=== PATIENT | female | born 1935 | race Caucasian/White ===

== ENCOUNTER 2017-07-06 16:59 | Inpatient (IN) | payer MEDICARE ==
[2017-07-06] MEDS ORDERED: NS 0.9% 1000 ML*IV.FLUID IV ONE (17:54)
[2017-07-06] MEDS ORDERED: Vancomycin(*) 1,000 MG in NS 0.9% 250 ML* 250 ML IVPB ONE (17:55)
[2017-07-06] MEDS ORDERED: Piperacillin/Tazobac ADVAN(*) 3.375 GM in NS 0.9% 100 ML* 100 ML IVPB ONE (18:28)
[2017-07-06] MEDS ORDERED: Piperacillin/Tazobac (*) 3.375 GM BAG ONE (18:32)
[2017-07-06 18:49] LABS: Hematocrit 21 % (35-47); Hemoglobin 6.5 g/dl (12.0-16.0); Mean Corpuscular HGB Conc 32 g/dl (31-36); Mean Corpuscular Hemoglobin 28 pg (27-31); Mean Corpuscular Volume 89 fL (80-97); Mean Platelet Volume 6.9 um3 (7.4-10.4); Platelet Count 445 10^3/ul (150-450); Red Blood Count 2.34 10^6/ul (4.0-5.4); Red Cell Distribution Width 18 % (10.5-15); White Blood Count 29.9 10^3/ul (3.5-10.8)
[2017-07-06 19:07] LABS: EGFR Non-African American 31.9 (>60)
[2017-07-06 19:10] LABS: ABS Basophils 0.1 10^3/ul (0-0.2); ABS Eosinophils 0 10^3/ul (0-0.6); ABS Lymphocytes 0.4 10^3/ul (1.0-4.8); ABS Monocytes 2.1 10^3/ul (0-0.8); ABS Neutrophils 27.2 10^3/ul (1.5-7.7); ABS Nucleated RBC 0 10^3/ul; Eosinophil % 0.1 % (0-6); Lymphocyte % 1.3 % (25-47); Nucleated Red Blood Cells % 0.1
--- NOTE | 2017-07-06 19:18 | RAD ---
INDICATION: Sepsis COMPARISON: Chest x-ray dated October 03, 2015 TECHNIQUE: Single AP view of the chest was obtained. FINDINGS: There is mild cardiomegaly. There is density obscuring the right lung base and causing a small degree of right costophrenic angle blunting. Visualized bones are normal for the patient's age. IMPRESSION: POTENTIAL CONSOLIDATION AND/OR PLEURAL EFFUSION AT THE RIGHT LUNG BASE.
[2017-07-06 20:20] LABS: Urine Appearance Cloudy; Urine Blood 2+ (Negative); Urine Color Yellow; Urine Ketones Negative (Negative); Urine Protein 1+(30 mg/dL) (Negative); Urine Specific Gravity 1.012 (1.010-1.030); Urine Urobilinogen Negative (Negative)
--- NOTE | 2017-07-06 21:07 | ED ---
Kim Stephenson Emily, scribed for Tai Bray MD on 07/06/17 at 1805 . Abdominal Pain/Female - HPI Summary HPI Summary: This patient is an 82 year old F BIBA and referred to [facility] by PCP accompanied by family with a chief complaint of waxing and waning abd pain that began 1 week ago. The patient rates the pain 0/10 in severity. Symptoms aggravated by nothing. Symptoms alleviated by nothing. Patient reports back stool, black urine , weakness, and sore on the buttock. Pt had bloodwork done this morning for these symptoms, and reports that her PCP told her she had a low glucose. - History of Current Complaint Chief Complaint: EDGeneral Stated Complaint: ABNORMAL BLOOD WORK Time Seen by Provider: 07/06/17 17:41 Hx Obtained From: Patient ?: No Onset/Duration: Sudden Onset, Lasting Weeks, Still Present Timing: Constant Severity Initially: Mild Severity Currently: Mild Pain Intensity: 0 Pain Scale Used: 0-10 Numeric Location: Diffuse Radiates: No Aggravating Factor(s): Nothing Alleviating Factor(s): Nothing Associated Signs and Symptoms: Positive: Other: - Positive back stool, black urine, weakness, and sore on the buttock Allergies/Adverse Reactions: Allergies Allergy/AdvReac Type Severity Reaction Status Date / Time MS Codeine [Codeine] Allergy Unknown Verified 06/06/17 13:11 Reaction Details MS Oxymorphone [Oxymorphone] AdvReac Unknown Verified 06/06/17 13:11 Reaction Details MS Tramadol [From Ultram] AdvReac Unknown Verified 06/06/17 13:11 Reaction Details bee stings Allergy Severe anaphylaxis Uncoded 10/18/15 13:21 coffee Allergy Unknown Unknown Uncoded 10/18/15 13:21 Reaction Details PMH/Surg Hx/FS Hx/Imm Hx Previously Healthy: No Endocrine/Hematology History: Reports: Hx Anemia, Other Endocrine/Hematological Disorders - pancreatic insufficiency Denies: Hx Anticoagulant Therapy, Hx Diabetes, Hx Thyroid Disease Cardiovascular History: Reports: Hx Angina, Hx Deep Vein Thrombosis, Hx Hypotension, Hx Syncope, Other Cardiovascular Problems/Disorders - thrombolphlebitis, 1989 and orthostatic hypotension Denies: Hx Congestive Heart Failure, Hx Hypertension, Hx Pacemaker/ICD Respiratory History: Reports: Hx Pulmonary Embolism Denies: Hx Asthma, Hx Chronic Obstructive Pulmonary Disease (COPD) GI History: Reports: Hx Gall Bladder Disease - ursula'y; pancreatic insufficiency , Hx Gastroesophageal Reflux Disease, Hx Ulcer, Other GI Disorders - pancreatic insufficiency, pancreatic sx Denies: Hx Jaundice History: Reports: Other Problems/Disorders - neurogenic bladder Denies: Hx Renal Disease Musculoskeletal History: Reports: Hx Arthritis, Hx Rheumatoid Arthritis, Hx Back Problems, Hx Orthopedic Injury, Other Musculoskeletal History - rotator cuff repair Sensory History: Reports: Hx Cataracts, Hx Contacts or Glasses Denies: Hx Eye Injury, Hx Eye Prosthesis, Hx Glaucoma, Hx Legally Blind, Hx Macular Degeneration, Hx Vision Problem, Hx Deafness, Hx Hearing Aid, Hx Hearing Problem, Other Sensory Impairments Opthamlomology History: Reports: Hx Cataracts, Hx Contacts or Glasses Denies: Hx Eye Injury, Hx Eye Prosthesis, Hx Glaucoma, Hx Legally Blind, Hx Macular Degeneration, Hx Vision Problem, Other Sensory Impairments Neurological History: Reports: Hx Seizures, Hx Spinal Cord Injury, Other Neuro Impairments/Disorders - neurogenic bladder, FENTANYL PUMP Denies: Hx Dementia, Hx Developmental Delay, Hx Headaches, Hx Migraine, Hx Nerve Disease, Hx Transient Ischemic Attacks (TIA) Psychiatric History: Denies: Hx Anxiety, Hx Depression, Hx Substance Abuse - Surgical History Surgery Procedure, Year, and Place: intrathecal pump. revision of the intrathecal pump. pancreatic surgery. cataract lens implants. spinal surgery , [id number]. gastric bypass. cholecystectomy. appendectomy Hx Anesthesia Reactions: No - Immunization History Date of Tetanus Vaccine: 2009 Infectious Disease History: No Infectious Disease History: Reports: Hx of Known/Suspected MRSA Denies: Hx Clostridium Difficile, Hx Hepatitis, Hx Human Immunodeficiency Virus (HIV), Hx Shingles, Hx Tuberculosis, Hx Known/Suspected VRE, Hx Known/ Suspected VRSA, History Other Infectious Disease, Traveled Outside the [place] in Last 30 Days - Family History Known Family History: Positive: Other - Cancer - Social History Occupation: Retired Lives: Alone Alcohol Use: None Hx Substance Use: No Substance Use Type: Reports: None Substance Use Comment - Amount & Last Used: hydromorphone Hx Tobacco Use: Yes Smoking Status (MU): Former Smoker Type: Cigarettes Have You Smoked in the Last Year: No Review of Systems Positive: Other - Positive black stool Positive: other - Positive black urine Positive: Other - Positive sore on buttock Positive: Weakness All Other Systems Reviewed And Are Negative: Yes Physical Exam - Summary Physical Exam Summary: Appearance: The patient is well-nourished and ill-appearing. Skin: The skin is warm and dry and skin color reflects adequate perfusion. Mild erythema on bilateral buttocks. Mild tenderness. HEENT: The head is normocephalic and atraumatic. The pupils are equal and reactive. The conjunctivae are clear and without drainage. Nares are patent and without drainage. Mouth reveals moist mucous membranes and the throat is without erythema and exudate. The external ears are intact. The ear canals are patent and without drainage. The tympanic membranes are intact. Neck: the neck is supple with full range of motion and non-tender. There are no carotid bruits. There is no neck vein distension. Respiratory: Chest is non-tender. Lungs are clear to auscultation and breath sounds are symmetrical and equal. Cardiovascular: Heart is regular rate and rhythm. There is no murmur or rub auscultated. There is no peripheral edema and pulses are symmetrical and equal. Abdomen: The abdomen is soft. Mild diffuse tenderness. There are normal bowel sounds heard in all four quadrants and there is no organomegaly palpated. Musculoskeletal: There is no back tenderness noted. Extremities are non-tender with full range of motion. There is good capillary refill. There is no peripheral edema or calf tenderness elicited. Neurological: Patient is alert and oriented to person, place and time. The patient has symmetrical motor strength in all four extremities. Cranial nerves are grossly intact. Deep tendon reflexes are symmetrical and equal in all four extremities. Psychiatric: The patient has an appropriate affect and does not exhibit any anxiety or depression. Triage Information Reviewed: Yes Vital Signs On Initial Exam: Initial Vitals Temp Pulse Resp BP Pulse Ox 98.8 F 97 14 101/49 95 07/06/17 17:36 07/06/17 17:36 07/06/17 17:36 07/06/17 17:36 07/06/17 17:36 Vital Signs Reviewed: Yes Diagnostics - Vital Signs Vital Signs Temp Pulse Resp BP Pulse Ox 07/06/17 17:36 98.8 F 97 14 101/49 95 - Laboratory Lab Results: Lab Results 07/06/17 07/06/17 07/06/17 Range/Units 18:45 18:45 18:45 WBC 29.9 H (3.5-10.8) 10^3/ul RBC 2.34 L (4.0-5.4) 10^6/ul Hgb 6.5 L (12.0-16.0) g/dl Hct 21 L (35-47) % MCV 89 (80-97) fL MCH 28 (27-31) pg MCHC 32 (31-36) g/dl RDW 18 H (10.5-15) % Plt Count 445 (150-450) 10^3/ul MPV 6.9 L (7.4-10.4) um3 Neut % (Auto) 91.0 H (38-83) % Lymph % (Auto) 1.3 L (25-47) % Latimer % (Auto) 7.2 H (0-7) % Eos % (Auto) 0.1 (0-6) % Baso % (Auto) 0.4 (0-2) % Absolute Neuts (auto) 27.2 H (1.5-7.7) 10^3/ul Absolute Lymphs (auto) 0.4 L (1.0-4.8) 10^3/ul Absolute Monos (auto) 2.1 H (0-0.8) 10^3/ul Absolute Eos (auto) 0 (0-0.6) 10^3/ul Absolute Basos (auto) 0.1 (0-0.2) 10^3/ul Absolute Nucleated RBC 0 10^3/ul Nucleated RBC % 0.1 INR (Anticoag Therapy) 1.00 (0.77-1.02) APTT 27.2 (26.0-36.3) seconds Sodium 142 (139-145) mmol/L Potassium 3.9 (3.5-5.0) mmol/L Chloride 109 (101-111) mmol/L Carbon Dioxide 23 (22-32) mmol/L Anion Gap 10 (2-11) mmol/L BUN 48 H (6-24) mg/dL Creatinine 1.56 H (0.51-0.95) mg/dL Est GFR ( Amer) 41.0 (>60) Est GFR (Non-Af Amer) 31.9 (>60) BUN/Creatinine Ratio 30.8 H (8-20) Glucose 103 H (70-100) mg/dL Lactic Acid (0.5-2.0) mmol/L Calcium 7.6 L (8.6-10.3) mg/dL Total Bilirubin 0.30 (0.2-1.0) mg/dL AST 13 (13-39) U/L ALT 8 (7-52) U/L Alkaline Phosphatase 100 (34-104) U/L Troponin I 0.42 H* (<0.04) ng/mL C-Reactive Protein 250.79 H (< 5.00) mg/L Total Protein 5.8 L (6.4-8.9) g/dL Albumin 2.1 L (3.2-5.2) g/dL Globulin 3.7 (2-4) g/dL Albumin/Globulin Ratio 0.6 L (1-3) Urine Color Urine Appearance Urine pH (5-9) Ur Specific Spencer (1.010-1.030) Urine Protein (Negative) Urine Ketones (Negative) Urine Blood (Negative) Urine Nitrate (Negative) Urine Bilirubin (Negative) Urine Urobilinogen (Negative) Ur Leukocyte Esterase (Negative) Urine WBC (Auto) (Absent) Urine RBC (Auto) (Absent) Ur Squamous Epith Cells (Absent) Urine Bacteria (Absent) Urine Glucose (Negative) 07/06/17 07/06/17 Range/Units 18:45 20:03 WBC (3.5-10.8) 10^3/ul RBC (4.0-5.4) 10^6/ul Hgb (12.0-16.0) g/dl Hct (35-47) % MCV (80-97) fL MCH (27-31) pg MCHC (31-36) g/dl RDW (10.5-15) % Plt Count (150-450) 10^3/ul MPV (7.4-10.4) um3 Neut % (Auto) (38-83) % Lymph % (Auto) (25-47) % Latimer % (Auto) (0-7) % Eos % (Auto) (0-6) % Baso % (Auto) (0-2) % Absolute Neuts (auto) (1.5-7.7) 10^3/ul Absolute Lymphs (auto) (1.0-4.8) 10^3/ul Absolute Monos (auto) (0-0.8) 10^3/ul Absolute Eos (auto) (0-0.6) 10^3/ul Absolute Basos (auto) (0-0.2) 10^3/ul Absolute Nucleated RBC 10^3/ul Nucleated RBC % INR (Anticoag Therapy) (0.77-1.02) APTT (26.0-36.3) seconds Sodium (139-145) mmol/L Potassium (3.5-5.0) mmol/L Chloride (101-111) mmol/L Carbon Dioxide (22-32) mmol/L Anion Gap (2-11) mmol/L BUN (6-24) mg/dL Creatinine (0.51-0.95) mg/dL Est GFR ( Amer) (>60) Est GFR (Non-Af Amer) (>60) BUN/Creatinine Ratio (8-20) Glucose (70-100) mg/dL Lactic Acid 1.0 (0.5-2.0) mmol/L Calcium (8.6-10.3) mg/dL Total Bilirubin (0.2-1.0) mg/dL AST (13-39) U/L ALT (7-52) U/L Alkaline Phosphatase (34-104) U/L Troponin I (<0.04) ng/mL C-Reactive Protein (< 5.00) mg/L Total Protein (6.4-8.9) g/dL Albumin (3.2-5.2) g/dL Globulin (2-4) g/dL Albumin/Globulin Ratio (1-3) Urine Color Yellow Urine Appearance Cloudy Urine pH 5.0 (5-9) Ur Specific Spencer 1.012 (1.010-1.030) Urine Protein 1+(30 mg/dl) A (Negative) Urine Ketones Negative (Negative) Urine Blood 2+ A (Negative) Urine Nitrate Negative (Negative) Urine Bilirubin Negative (Negative) Urine Urobilinogen Negative (Negative) Ur Leukocyte Esterase 2+ A (Negative) Urine WBC (Auto) 3+(>20/hpf) A (Absent) Urine RBC (Auto) 3+(>10/hpf) A (Absent) Ur Squamous Epith Cells Present A (Absent) Urine Bacteria 1+ A (Absent) Urine Glucose Negative (Negative) Result Diagrams: 07/06/17 18:45 07/06/17 18:45 Lab Statement: Any lab studies that have been ordered have been reviewed, and results considered in the medical decision making process. - Radiology CXR Radiology Interpretation Completed By: Radiologist - CXR reveals, per radiologist, potential consolidation and/or pleural effusion at the right lung base. ED physician has reviewed this radiology report. - EKG 2032 Cardiac Rate: NL EKG Rhythm: Sinus Rhythm - [address] Segment: Normal Ectopy: None Abdominal Pain Fem Course/Dx - Course Course Of Treatment: Ms. Del Rio has been having abdominal pain on and off for several days and had blood work done this morning at Dr. kenyatta schreiber. She was found to have a marked leukocytosis and a worsening anemia and was advised to come to the emergency department. Here she was ill appearing but awake and alert with normal vital signs. She complained of abdominal pain but was not very tender to exam. She also complained of pain from her buttock area but again her exam was not very remarkable. White count was almost 30,000 with a leftward shift. Her CRP was over 200. Her hemoglobin was 6.9 and she had mild renal insufficiency. She was given 30 cc/kg IV fluid and Zosyn was ordered because of the concern of abdominal pain and pain out of proportion to exam. Her urine did return looking very. She is being admitted to the hospitalist service. - Diagnoses Provider Diagnoses: Sepsis, UTI (urinary tract infection) - Provider Notifications Discussed Care Of Patient With: Emir Garsia Time Discussed With Above Provider: 19:45 Instructed by Provider To: Other - Consult with Dr. Garsia (hospitalist) at 1945. He agrees to admit the pt for further evaluation. - Critical Care Time Critical Care Time: 30-74 min Discharge - Sign-Out/Discharge Documenting (check all that apply): Discharge/Admit/Transfer - Admit to [facility] - Discharge Plan Condition: Stable Disposition: ADMITTED TO [facility] Referrals: Bruce Fernandez MD [Primary Care Provider] - - Billing Disposition and Condition Condition: STABLE Disposition: HOSP-[facility] The documentation as recorded by the Kim ledesma Emily accurately reflects the service I personally performed and the decisions made by me, Tai Bray MD.
[2017-07-06] MEDS ORDERED: Pantoprazole IV* 40 MG IV ONE (22:12)
[2017-07-06] MEDS ORDERED: NS 0.9% 1000 ML* 1,000 ML IV SCH (22:15)
[2017-07-06] MEDS ORDERED: Polyethylene Glycol 3350* 17 GM PACKET PO PRN (22:18)
[2017-07-06] MEDS ORDERED: Prochlorperazine SUPP* 25 MG SUPP PR PRN (22:18)
[2017-07-06] MEDS ORDERED: HYDROmorphone TAB* 2 MG PO PRN (22:18)
[2017-07-06] MEDS ORDERED: SUMAtriptan TAB* 50 MG PO PRN (22:18)
[2017-07-06] MEDS ORDERED: Zosyn per Pharmacy* NOTE FOLLOW UP SCH (23:00)
[2017-07-07] MEDS: ZOSYN 3.375 GM Q12H per EXTENDED INFUSION IVPB SCH ×4 (01:10→11:51)
[2017-07-07] MEDS ORDERED: HYDROmorphone INJ* 2 MG/ML CARPUJECT SYRINGE IV SLOW PU ONE (05:53)
[2017-07-07] MEDS: Pantoprazole IV* 80 MG in NS 0.9% 250 ML* 250 ML IV SCH ×3 (06:19→21:19)
--- NOTE | 2017-07-07 07:08 | HP ---
CC: Dr. Fernandez * ADMISSION HISTORY AND PHYSICAL: DATE OF ADMISSION: 07/06/17 PRIMARY CARE PROVIDER: Dr. Fernandez. HEALTHCARE PROXY: Her nieces, Camryn Owusu and Opal Hernandez. CODE STATUS: Full. SOURCE OF INFORMATION: History obtained from interview with patient and review of past medical records. RELIABILITY: The patient's reliability is fair to poor. Medical record is excellent. CHIEF COMPLAINT: Abnormal labs and abdominal pain. HISTORY OF PRESENT ILLNESS: This is an 82-year-old female who has been in her usual state of health until around , approximately 5 to 6 days prior to presentation, started to notice black stool that was not tarry in nature. She had it for several days and the stool color started to normalize, but then returned to black again. Also, over she started to experience abdominal pain that had 2 different qualities. One pain she describes as like having a chain under her breast that was pulling and other that was cramping like she needed to move her bowels, also described the spasms. Both had improved and then returned again. She cannot say how long either pain lasts before resolving. She cannot indicate any exacerbating or relieving symptoms. She notes that on Sunday she had vomiting that occurred all day innumerable amount of times that started to improve on Sunday. She notes no blood in her emesis. She indicates that her predominant symptom in addition to the abdominal pain was essential weakness, though so profound that she had trouble thinking. She denies any headache, fevers or chills, but indicated she felt confused as if she knew she needed to do things and sign papers, but did not know exactly what to do. She indicates she has a neurogenic bladder and self- cath's 3 times a day. She does freely urinate, although does have urinary incontinence. She denies any dysuria, urinary frequency or hesitancy or malodorous urine. She notes no diarrhea, no cough, has denied night fevers or chills, although she indicates she has been feeling increasingly cold. She has been staying in a wheelchair all week and not walking secondary to her weakness and fear of falling. PAST MEDICAL HISTORY: Includes: 1. Chronic pain with intrathecal pump. 2. History of subdural hematoma. 3. Neurogenic bladder, self-cath 3 times a day. 4. Pancreatic insufficiency. 5. Severe orthostatic hypotension. 6. History of DVT and PE. 7. History of left hip fracture. 8. History of migraines. 9. Urolithiasis. 10. History of aortic stenosis, although last transthoracic echocardiogram here does not indicate any severity. 11. History of malabsorption syndrome. 12. L2 vertebral fracture. 13. GERD. 14. Renal insufficiency. 15. History of cellulitis. PAST SURGICAL HISTORY: 1. History of appendectomy. 2. Lap cholecystectomy. 3. Mainor-en-Y surgery. 4. Cataract extraction. MEDICATIONS: Medications per patient's medication list: 1. Chlorhexidine oral rinse. 2. Creon 5 one tab 4 times a day with food. 3. Fludrocortisone 0.1 mg in the morning. 4. Midodrine 2.5 mg 3 times a day. 5. Dilantin sod extended 100 mg twice daily. 7. Potassium chloride 20 mg 2 in the morning and 2 at night. 8. Tums 1000 mg daily as needed. 9. Tonic water 16 ounces for leg cramps. 10. Spironolactone 25 mg in the morning. 11. Vitamin B12 1 mL injected twice monthly. 12. Vitamin K 1 mL injected weekly. 13. Bumetanide 1 mg daily. 14. Metolazone 2.5 mg as needed for edema. 15. EpiPen as needed. 16. Nitroglycerin 0.4 mg as needed. 17. Sumatriptan 50 mg at the onset of headaches. 18. Compazine 25 mg suppository every 4 to 6 hours for nausea. 19. Oxybutynin 5 mg. ALLERGIES: CODEINE, OXYMORPHONE, TRAMADOL, BEE STINGS and COFFEE. FAMILY HISTORY: Mother had cancer, father with CAD. SOCIAL HISTORY: No history of tobacco. No alcohol. Lives by herself. REVIEW OF SYSTEMS: As per above, otherwise all other systems negative. PHYSICAL EXAMINATION GENERAL: Elderly woman lying on her side, interactive, no apparent distress. VITAL SIGN: In the emergency room: 103/45, heart rate 91, respiratory rate is 18, 98% on room air. T. max 98.8. HEENT: Oropharynx is clear. She has dry mucous membranes. Sclerae are anicteric. LUNGS: Clear to auscultation. NECK: She has elevated JVD to the angle of her jaw. HEART: She has a 3/6 systolic ejection murmur. Regular rate and rhythm. ABDOMEN: Soft. There is a subcutaneous pump placed without tenderness. Her abdomen has positive bowel sounds. It is tender in the suprapubic region. EXTREMITIES: Warm and well perfused without clubbing or cyanosis. Less than 2 second cap refill NEUROLOGIC: She is alert and oriented x3. Her cranial nerves II through XII are intact. DIAGNOSTIC STUDIES/LAB DATA: Pertinent laboratory data: Troponin I 0.42, creatinine 1.56. White blood cell count 29.9, neutrophils 91%, platelets 445, hemoglobin is 6.5, hematocrit 21. INR is 1.0. Urine is positive for protein, blood, leuk esterase, white blood cells, squamous epithelial cells and bacteria. CRP is 250. Data reviewed: Chest x-ray, impression: Potential consolidation and/or pleural effusion at the right lung base. EKG impression: Normal sinus rhythm, ventricular rate of 87, left axis. Normal R- wave progression. No ST or T-wave changes. ASSESSMENT AND PLAN: This is an 82-year-old female presenting to the hospital with about a week of abdominal pain found with elevated C-reactive protein, anemia and troponin on labs. 1. Leukocytosis: Suspect in the setting of infection with elevated C-reactive protein as well. There is potential consolidation based on the chest x-ray, although I favor the urine as the source of infection. The patient has received Zosyn once in the emergency room. We will continue until blood cultures or urine cultures results positive or negative. Volume resuscitation with blood for anemia as indicated further below. The patient is certainly high risk for urinary tract infections with frequent straight cath. 2. Abdominal pain. Certainly is possible in the setting of urinary tract infection, although I feel it is important to get CT abdomen and pelvis. We will check image with oral contrast, but not IV given chronic kidney disease. In the setting of anemia and black tarry stool, gastric ulcer is certainly something to entertain. We will bolus Protonix and start her on a drip. GI consultation in addition. Blood as indicated above and below for anemia. 3. Anemia. Suspect acute blood loss from a gastrointestinal source given melena. Bolus Protonix as indicated above, then Protonix drip. GI consult, CT abdomen and pelvis 1 unit of blood ordered. 4. Acute on chronic kidney injury in the setting of infection and/or blood loss. Fluid resuscitate with blood as indicated above. 5. Elevated troponin. Suspect demand although cannot rule out acute ischemic event as etiology of her weakness and abdominal pain. Repeat troponin is downtrending at this time. I have ordered transthoracic echocardiogram. The patient has a history of aortic stenosis although and it sounds severe based on exam although severity is not commented on the most recent study that I have access to. Repeat transthoracic echocardiogram while hospitalized if able. 6. Chronic congestive heart failure, diastolic. Holding diuretics in the setting of acute blood loss anemia. 7. Chronic pain. Continuing home medications. 8. Hypertension. Holding home antihypertensives in the setting of acute blood loss anemia. 9. DVT prophylaxis: SCDs in the setting of suspected gastrointestinal bleed. [id number]/[facility] #: [id number]
[2017-07-07 08:56] LABS: ABS Basophils 0.1 10^3/ul (0-0.2); ABS Eosinophils 0.1 10^3/ul (0-0.6); ABS Lymphocytes 0.3 10^3/ul (1.0-4.8); ABS Monocytes 2.2 10^3/ul (0-0.8); ABS Neutrophils 28.1 10^3/ul (1.5-7.7); ABS Nucleated RBC 0 10^3/ul; Eosinophil % 0.3 % (0-6); Hematocrit 24 % (35-47); Hemoglobin 7.5 g/dl (12.0-16.0); Lymphocyte % 0.9 % (25-47); Mean Corpuscular HGB Conc 31 g/dl (31-36); Mean Corpuscular Hemoglobin 27 pg (27-31); Mean Corpuscular Volume 86 fL (80-97); Mean Platelet Volume 7.4 um3 (7.4-10.4); Nucleated Red Blood Cells % 0.1; Platelet Count 374 10^3/ul (150-450); Red Cell Distribution Width 21 % (10.5-15); White Blood Count 30.8 10^3/ul (3.5-10.8)
[2017-07-07] MEDS ORDERED: Midodrine (NF) 5 MG TAB PO SCH (09:00)
[2017-07-07 09:14] LABS: EGFR Non-African American 33.6 (>60)
--- NOTE | 2017-07-07 09:38 | RAD ---
INDICATION: Abdominal pain. Sepsis. Sore on buttocks. Previous pancreatic surgery. Mainor-en-Y bypass. COMPARISON: February 12, [address] and September 30, [address] TECHNIQUE: Multidetector CT images were obtained from the lung bases to the ischial tuberosities. Oral contrast history. Assessment of the visceral limited without IV contrast. REPORT: Images through the inferior thorax are remarkable for elevated lung volumes with increased AP thoracic diameter, mild bilateral dependent atelectasis, potential mild interstitial edema, and small bilateral dependent pleural effusions. Negative for cardiomegaly or pericardial effusion. Small hiatal hernia. Post cholecystectomy. Pneumobilia and resolution of previous biliary dilatation favoring interval sphincterotomy; correlate with surgical history. Atrophic pancreas without suspicious focal abnormality. Unremarkable spleen. Postsurgical change of Mainor-en-Y gastric bypass. Enteric contrast extends to the hepatic flexure of the colon. No suspicious abnormality of the small bowel loops. The appendix is not visualized. No compelling CT abnormality of the colon. Negative for ascites, free air, hernias. Normal adrenal glands. Advanced atrophy of the kidneys. Small exophytic cyst inferior pole LEFT kidney. Negative for obstructive uropathy. No abnormality along the course of the nondilated ureters. Unremarkable partially distended urinary bladder. No CT abnormality of the uterus. Unchanged finding of small bilateral ovarian cysts compared with the 2015 exam without concern. Negative for lymphadenopathy. Normal diameter abdominal aorta and iliac arteries with significant calcific plaque. Partial physiologic distention of the IVC. Diffuse subcutaneous edema. Chronic dystrophic calcification within the subcutaneous fat plane of the LEFT buttock. No soft tissue plane abscess collection or subcutaneous emphysema evident. Gamma nail internal fixation with long IM neha at the LEFT hip. Bone density appears decreased throughout. L3 anterior and middle column compression fracture is chronic. Moderate L2 anterior and middle column osteoporotic compression fracture is new compared with the [address] evidence for acute fracture. Compression fractures and multilevel degenerative spondylosis and advanced facet joint osteoarthritis results in multilevel moderate acquired central canal and foraminal stenosis increased over the 2016 exam. Multiple dorsal column stimulator leads noted. IMPRESSION: 1. Images through the inferior thorax are remarkable for elevated lung volumes with increased AP thoracic diameter, mild bilateral dependent atelectasis, potential mild interstitial edema, and small bilateral dependent pleural effusions. 2. Post cholecystectomy. Pneumobilia and resolution of previous biliary dilatation favoring interval sphincterotomy; correlate with surgical history. 3. Postsurgical change of Mainor-en-Y gastric bypass. No acute abnormality of the alimentary tract evident. 4. Peripheral vascular disease without aneurysm of the abdominal aorta. 5. Diffuse subcutaneous edema. No soft tissue plane abscess collection or subcutaneous emphysema evident. 6. Bone density appears decreased throughout. L3 anterior and middle column compression fracture is chronic. Moderate L2 anterior and middle column osteoporotic compression fracture is new compared with the [address] evidence for acute fracture. Compression fractures and multilevel degenerative spondylosis and advanced facet joint osteoarthritis results in multilevel moderate acquired central canal and foraminal stenosis increased over the 2016 exam.
[2017-07-07] MEDS: Calcium Carbonate CHEW TAB* 500 MG (TUMS) PO SCH ×2 (09:39→22:06)
[2017-07-07] MEDS: Potassium Chlor TAB* 20 MEQ TAB.ER PO SCH ×2 (09:40→22:09)
[2017-07-07] MEDS: Fludrocortisone Acetate TAB* 0.1 MG PO SCH (09:40)
[2017-07-07] MEDS: Oxybutynin TAB* 5 MG PO SCH (09:40)
[2017-07-07] MEDS: Spironolactone TAB* 25 MG PO SCH (09:40)
[2017-07-07] MEDS: Phenytoin CAP(*) 100 MG CAP.ER PO SCH ×2 (09:40→22:06)
--- NOTE | 2017-07-07 11:29 | PN ---
Subjective - Subjective History: I reviewed her presentation from Dr. Emir Garisa's admitting history and physical. She presents with a complex of problems. She has had melena stool and is anemic. She was transfused last night. She has increased weakness and a high CRP, WBC and neut% - the source of this infection is unclear. It could be her urinary tract as she self-catheterizes her neurogenic bladder. She has no cough, sputum or dyspnea. She has generalized pain - nothing new. She is weak and subjectively is not mentally as acute as normal - though she is fully oriented and can give a good account of herself. She has pain in her coccyx. 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 Urinary tract infection (Acute) Bariatric surgery status (Chronic) Z98.84 Chronic pain syndrome (Chronic) G89.4 Compression fracture of L3 lumbar vertebra (Chronic) S32.030A Esophageal reflux disease (Chronic 03/30/14) K21.9 L2 vertebral fracture (Chronic) S32.029A Malabsorption (Chronic) Neurogenic bladder (Chronic) N31.9 Osteoporosis (Chronic) M81.0 Pancreatic insufficiency (Chronic) K86.8 Weakness (Chronic 03/30/14) R53.1 Current Medications: Current Medications Calcium Carbonate (Tums*) 1,000 mg PO BID [facility] Last Admin: 07/07/17 09:39 Dose: 1,000 mg Fludrocortisone Acetate (Florinef Tab*) 0.1 mg PO QAM [facility] Last Admin: 07/07/17 09:40 Dose: 0.1 mg Gabapentin (Neurontin Cap(*)) 300 mg PO BEDTIME [facility] Hydromorphone HCl (Dilaudid Tab*) 6 mg PO Q4H PRN PRN Reason: PAIN Pantoprazole Sodium 80 mg/ (Sodium Chloride) 250 mls @ 25 mls/hr IV Q10H [facility] Last Admin: 07/07/17 06:19 Dose: 25 mls/hr Piperacillin Sod/Tazobactam (Sod 3.375 gm/ Sodium Chloride) 100 mls @ 25 mls/ hr IVPB Q12H [facility] Last Admin: 07/07/17 01:10 Dose: 25 mls/hr Midodrine (Midodrine (Nf)) 2.5 mg PO TID [facility] PRN Reason: Protocol Oxybutynin Chloride (Ditropan Tab*) 5 mg PO DAILY [facility] Last Admin: 07/07/17 09:40 Dose: 5 mg Pharmacy Consult (Zosyn Per Pharmacy*) 1 note FOLLOW UP .ZOSYN PER PHARMACY [facility] Phenytoin Sodium (Dilantin Cap(*)) 100 mg PO BID [facility] Last Admin: 07/07/17 09:40 Dose: 100 mg Polyethylene Glycol/Electrolytes (Miralax*) 17 gm PO DAILY PRN PRN Reason: CONSTIPATION Potassium Chloride (Klor Con Er Tab*) 40 meq PO BID [facility] Last Admin: 07/07/17 09:40 Dose: 40 meq Prochlorperazine (Compazine Supp*) 25 mg MD Q4H PRN PRN Reason: VOMITING Sodium Chloride (Hypertonic) (Niko 128 Opth 2% Alejandro*) 1 drop BOTH EYES TID [facility] Sodium Chloride (Hypertonic) (Niko 128- 5% Opth Oint*) 1 applic BOTH EYES BEDTIME [facility] Spironolactone (Aldactone Tab*) 25 mg PO QAM [facility] Last Admin: 07/07/17 09:40 Dose: 25 mg Sumatriptan Succinate (Imitrex Tab*) 50 mg PO DAILY PRN PRN Reason: MIGRAINE HEADACHE - Review of Systems Pulmonary: Negative: Cough, Sputum, Respiratory Distress Cardiology: Positive: Chest Pain - intermittent Negative: Shortness of Breath, Palpitations, Swelling of Ankles Gastroenterology: Negative: Abdominal Pain, Nausea, Vomiting Neurology: Positive: Headache Home Medications: Home Medications Medication Instructions Recorded Confirmed Type Bumetanide TAB* [Bumex 1 MG TAB*] 1 mg PO DAILY 07/06/17 07/06/17 History Calcium Carbonate CHEW TAB* [Tums*] 1,000 mg PO BID 07/06/17 07/06/17 History Chlorhexidine MOUTHWASH 0.12%* 15 ml SWISH SPIT DAILY 07/06/17 07/06/17 History [Peridex Mouth Wash 0.12%*] Cyanocobalamin INJ * [Vitamin B12 1,000 mcg IM .TWICE A MONTH 07/06/17 07/06/17 History INJ *] EPINEPHrine SYR* [EPINEPHphrine 0.1 mg IM ONCE PRN 07/06/17 07/06/17 History SYR*] Fludrocortisone Acetate TAB* 0.1 mg PO QAM 07/06/17 07/06/17 History [Florinef TAB*] Gabapentin CAP(*) [Neurontin 300 300 mg PO BEDTIME 07/06/17 07/06/17 History CAP(*)] HYDROmorphone TAB* [Dilaudid TAB*] 6 - 8 mg PO Q4H PRN MDD 4.5 tablets 07/06/17 07/06/17 History Metolazone TAB* [Zaroxolyn TAB*] 2.5 mg PO DAILY PRN 07/06/17 07/06/17 History Midodrine (NF) 2.5 mg PO TID 07/06/17 07/06/17 History Nitroglycerin TAB 0.4 MG* 0.4 mg SL Q5M PRN 07/06/17 07/06/17 History Oxybutynin TAB* [Ditropan TAB*] 5 mg PO DAILY 07/06/17 07/06/17 History Phenytoin CAP(*) [Dilantin CAP(*)] 100 mg PO BID 07/06/17 07/06/17 History Phytonadione INJ (Adult)* [Vitamin 1 ml IM WEEKLY 07/06/17 07/06/17 History K1 INJ (Adult)*] Polyethylene Glycol 3350* 17 gm PO DAILY PRN 07/06/17 07/06/17 History [Miralax*] Potassium Chlor TAB* [Klor Con ER 40 meq PO BID 07/06/17 07/06/17 History TAB*] Prochlorperazine SUPP* [Compazine 25 mg MD Q4H PRN 07/06/17 07/06/17 History Supp*] SUMAtriptan TAB* [Imitrex TAB*] 50 mg PO DAILY PRN 07/06/17 07/06/17 History Sodium Chloride 2% OPTH.ALEJANDRO* [Niko 1 drop BOTH EYES TID 07/06/17 07/06/17 History 128 Opth 2% Alejandro*] Sodium Chloride 5% OPTH OINT* 1 applic BOTH EYES BEDTIME 07/06/17 07/06/17 History [Niko 128- 5% Opth Oint*] Spironolactone TAB* [Aldactone 25 mg PO QAM 07/06/17 07/06/17 History TAB*] Allergies: Allergies Allergy/AdvReac Type Severity Reaction Status Date / Time codeine AdvReac Unknown Unknown Verified 07/07/17 07:31 Reaction Details oxymorphone AdvReac Unknown Unknown Verified 07/07/17 07:31 Reaction Details tramadol AdvReac Unknown Unknown Verified 07/07/17 07:31 Reaction Details bee stings Allergy Severe anaphylaxis Uncoded 10/18/15 13:21 coffee Allergy Unknown Unknown Uncoded 10/18/15 13:21 Reaction Details Objective - Vital Signs Vital Signs: Vital Signs 07/06/17 07/06/17 07/06/17 23:00 23:46 23:47 Temperature 97.9 F Pulse Rate 84 63 Respiratory 3 16 16 Rate Blood Pressure 149/82 (mmHg) O2 Sat by Pulse 94 99 Oximetry 07/07/17 07/07/17 07/07/17 00:33 02:16 03:34 Temperature 98.3 F 97.9 F Pulse Rate 83 82 86 Respiratory 18 Rate Blood Pressure 95/43 90/38 113/39 (mmHg) O2 Sat by Pulse 97 98 97 Oximetry 07/07/17 07/07/17 07/07/17 04:06 05:32 05:35 Temperature 98.0 F Pulse Rate 79 89 89 Respiratory 16 Rate Blood Pressure 88/34 114/46 104/52 (mmHg) O2 Sat by Pulse 98 Oximetry 07/07/17 07/07/17 07/07/17 06:13 07:00 07:37 Temperature 97.8 F Pulse Rate 89 Respiratory 16 16 16 Rate Blood Pressure 108/44 (mmHg) O2 Sat by Pulse 95 Oximetry 07/07/17 07/07/17 07/07/17 07:56 08:00 08:15 Temperature 98.1 F Pulse Rate 92 84 Respiratory 16 20 Rate Blood Pressure 109/43 (mmHg) O2 Sat by Pulse 89 95 Oximetry - Intake and Output Intake and Output: Intake & Output 07/04/17 07/05/17 07/06/17 07/07/17 11:59 11:59 11:59 11:59 Intake Total 1782 Output Total 200 Balance 1582 Weight 110 lb Intake: IV Fluids 1374 NS (0.9%) 274 IVPB 110 ABX - ZOSYN 110 Oral 0 Packed Cells 298 Output: Urine 200 Other: Estimated Void Medium # Bowel Movements 0 # Voids 1 ADLs: Meal Record Start: 07/06/17 23: 47 Freq: DAILY@0900,1400,1800 Status: Active Protocol: Created 07/06/17 23:47 System (Rec: 07/06/17 23:47 System [email or web address]) Document 07/07/17 09:00 [id number] (Rec: 07/07/17 10:29 [id number]) Intake and Output Start: 07/06/17 23: 47 Freq: DAILY@0600,1400,2200 Status: Active Protocol: Created 07/06/17 23:47 System (Rec: 07/06/17 23:47 System [email or web address]) Document 07/07/17 06:00 [id number] (Rec: 07/07/17 06:15 [id number] [email or web address]) Document 07/07/17 07:22 [id number] (Rec: 07/07/17 07:23 [id number]) - Physical Exam General Physical Exam Comment: She is weak. She has cervical kyphosis. Sacral area - red patch of skin - no ulceration. Frail General: No Cyanosis, Yes Anemia, No Jaundice, No Clubbing Eye Exam: bilateral: EOMI Lungs and Chest: Yes: Chest Expansion Full, Chest Expansion Symetrica, Percussion Note Resonant, Vessicular Breath Sounds. No: Crackles, Wheezes Heart Rate and Rhythm: Regular Additional Cardiovascular: Yes: Normal Heart Sounds. No: Heart Murmur, Pedal Edema Abdominal Exam: Yes: Bowel Sounds Present. No: Distention, Abdominal Mass, Abdominal Tenderness - Extremities Cranial Nerves II-XII Intact: Yes Limbs: Abnormal Power - generalized weakness - Neuro Orientation: A/O x3 Speech: Normal Results - Results Lab Results: Laboratory Results - last 24 hr 07/07/17 07/07/17 08:27 08:27 WBC 30.8 H RBC 2.80 L Hgb 7.5 L Hct 24 L MCV 86 MCH 27 MCHC 31 RDW 21 H Plt Count 374 MPV 7.4 Neut % (Auto) 91.1 H Lymph % (Auto) 0.9 L Crook % (Auto) 7.2 H Eos % (Auto) 0.3 Baso % (Auto) 0.5 Absolute Neuts (auto) 28.1 H Absolute Lymphs (auto) 0.3 L Absolute Monos (auto) 2.2 H Absolute Eos (auto) 0.1 Absolute Basos (auto) 0.1 Absolute Nucleated RBC 0 Nucleated RBC % 0.1 Sodium 141 Potassium 4.3 Chloride 115 H Carbon Dioxide 17 L Anion Gap 9 BUN 45 H Creatinine 1.49 H Est GFR ( Amer) 43.2 Est GFR (Non-Af Amer) 33.6 BUN/Creatinine Ratio 30.2 H Glucose 91 Calcium 7.2 L Radiology Results: Patient Name: YING SINGH Medical Record#: [id number] Ordering Physician: Emir Garsia MD Acct.#: [id number] : 1935 Age: 82 Sex: F Location: [address] [place] [address]/[employer]LE[employer] Exam Date: 07/06/172210 ADM Status: ADM IN Order Information: CT ABD/PEL W/O Accession Number: [id number] CPT: 41741 INDICATION: Abdominal pain. Sepsis. Sore on buttocks. Previous pancreatic surgery. Mainor-en-Y bypass. COMPARISON: February 12, [address] and September 30, [address] TECHNIQUE: Multidetector CT images were obtained from the lung bases to the ischial tuberosities. Oral contrast history. Assessment of the visceral limited without IV contrast. REPORT: Images through the inferior thorax are remarkable for elevated lung volumes with increased AP thoracic diameter, mild bilateral dependent atelectasis, potential mild interstitial edema, and small bilateral dependent pleural effusions. Negative for cardiomegaly or pericardial effusion. Small hiatal hernia. Post cholecystectomy. Pneumobilia and resolution of previous biliary dilatation favoring interval sphincterotomy; correlate with surgical history. Atrophic pancreas without suspicious focal abnormality. Unremarkable spleen. Postsurgical change of Aminor-en-Y gastric bypass. Enteric contrast extends to the hepatic flexure of the colon. No suspicious abnormality of the small bowel loops. The appendix is not visualized. No compelling CT abnormality of the colon. Negative for ascites , free air, hernias. Normal adrenal glands. Advanced atrophy of the kidneys. Small exophytic cyst inferior pole LEFT kidney. Negative for obstructive uropathy. No abnormality along the course of the nondilated ureters. Unremarkable partially distended urinary bladder. No CT abnormality of the uterus. Unchanged finding of small bilateral ovarian cysts compared with the 2015 exam without concern. Negative for lymphadenopathy. Normal diameter abdominal aorta and iliac arteries with significant calcific plaque. Partial physiologic distention of the IVC. Diffuse subcutaneous edema. Chronic dystrophic calcification within the subcutaneous fat plane of the LEFT buttock. No soft tissue plane abscess collection or subcutaneous emphysema evident. Gamma nail internal fixation with long IM neha at the LEFT hip. Bone density appears decreased throughout. L3 anterior and middle column compression fracture is chronic. Moderate L2 anterior and middle column osteoporotic compression fracture is new compared with the [address] evidence for acute fracture. Compression fractures and multilevel degenerative spondylosis and advanced facet joint osteoarthritis results in multilevel moderate acquired central canal and foraminal stenosis increased over the 2016 exam. Multiple dorsal column stimulator leads noted. IMPRESSION: 1. Images through the inferior thorax are remarkable for elevated lung volumes with increased AP thoracic diameter, mild bilateral dependent atelectasis, potential mild interstitial edema, and small bilateral dependent pleural effusions. 2. Post cholecystectomy. Pneumobilia and resolution of previous biliary dilatation favoring interval sphincterotomy; correlate with surgical history. 3. Postsurgical change of Mainor-en-Y gastric bypass. No acute abnormality of the alimentary tract evident. 4. Peripheral vascular disease without aneurysm of the abdominal aorta. 5. Diffuse subcutaneous edema. No soft tissue plane abscess collection or subcutaneous emphysema evident. 6. Bone density appears decreased throughout. L3 anterior and middle column compression 1 of 2 [facility] Patient Name:YING SINGH MR: [id number] : 1935 fracture is chronic. Moderate L2 anterior and middle column osteoporotic compression fracture is new compared with the [address] evidence for acute fracture. Compression fractures and multilevel degenerative spondylosis and advanced facet joint osteoarthritis results in multilevel moderate acquired central canal and foraminal stenosis increased over the 2016 exam. <Electronically signed by Gene Marc MD in OV> 07/07/17933 Dictated By: Gene Marc MD Dictated Date/Time: 07/07/17933 Transcribed Date/Time: 07/07/17915 Copy to: CC:Bruce Fernandez MD; Emir Garsia MD; Michael Teague MD Imaging - [facility] [address] [address] ph [phone]) ph [phone]) ph [phone]) Patient Name: YING SINGH Medical Record#: [id number] Ordering Physician: Tai Bray MD Acct.#: [id number] : 1935 Age: 82 Sex: F Location: EMERGENCY DEPARTMENT Exam Date: 07/06/171753 ADM Status: REG ER Order Information: CHEST 1 VW Accession Number: [id number] CPT: 42090 INDICATION: Sepsis COMPARISON: Chest x-ray dated October 03, 2015 TECHNIQUE: Single AP view of the chest was obtained. FINDINGS: There is mild cardiomegaly. There is density obscuring the right lung base and causing a small degree of right costophrenic angle blunting. Visualized bones are normal for the patient's age. IMPRESSION: POTENTIAL CONSOLIDATION AND/OR PLEURAL EFFUSION AT THE RIGHT LUNG BASE. <Electronically signed by Talha Joiner MD in OV> 07/06/171913 Dictated By: Talha Joiner MD Dictated Date/Time: 07/06/171913 Transcribed Date/Time: 07/06/171913 Copy to: CC:Bruce Fernandez MD; Tai Bray MD [facility] - [facility] [address] [place] [address] [address] ph [phone]) ph ([phone]) ph ([phone]) 1 of EKG Report: EKG 87 MD 152 QTc 421 QRS -10 normal SR Assessment - Problem List Assessment: Patient Problems Elevated troponin I level (Acute) Iron deficiency anemia (Acute) Melena (Acute) Osteomalacia (Acute) Presence of intrathecal pump (Acute) Urinary tract infection (Acute) Bariatric surgery status (Chronic) Chronic pain syndrome (Chronic) Compression fracture of L3 lumbar vertebra (Chronic) Esophageal reflux disease (Chronic 03/30/14) L2 vertebral fracture (Chronic) Malabsorption (Chronic) Neurogenic bladder (Chronic) Osteoporosis (Chronic) Pancreatic insufficiency (Chronic) Weakness (Chronic 03/30/14) Physical medicine and rehabilitation procedures (Acute) Aortic stenosis (Chronic) Plan: Urinary tract infection (Acute) She has evidence of a UTI - but this may not be the source of her elevated WBC, Neut% and CRP. I note this hasn't changed since yesterday - perhaps it was exacerbated by her transfusion. I will maintain her current antibacterial choice until tomorrow and will extend coverage based upon whether her WBC/CRP comes down. I will add a procalcitonin. Elevated troponin I level (Acute) This is likely secondary - her EKG is fine. I will check a transthoracic echocardiogram - also for the possibility of infective endocarditis Iron deficiency anemia (Acute) She will likely require some iron. I will not transfuse her further today Melena (Acute) She likely will require a GI consultation. However, I want her general medical condition to improve prior to an EGD/colonoscopy Osteomalacia (Acute) ongoing Presence of intrathecal pump (Acute) ongoing Bariatric surgery status (Chronic) secondary diagnosis Chronic pain syndrome (Chronic) secondary diagnosis Compression fracture of L3 lumbar vertebra (Chronic) Esophageal reflux disease (Chronic 03/30/14) L2 vertebral fracture (Chronic) Malabsorption (Chronic) secondary diagnosis Neurogenic bladder (Chronic) secondary diagnosis Osteoporosis (Chronic) secondary diagnosis Pancreatic insufficiency (Chronic) secondary diagnosis Weakness (Chronic 03/30/14) secondary diagnosis Physical medicine and rehabilitation procedures (Acute) secondary diagnosis Aortic stenosis (Chronic) secondary diagnosis I discussed the above with the patient and she agrees with the management plan. She wants to be full code.
[2017-07-07] MEDS: Sodium Chloride 2% OPTH.SOL* 15 ML BTL BOTH EYES SCH ×3 (11:51→22:14)
[2017-07-07] MEDS: CMC:Midodrine (NF) 5 MG TAB PO SCH ×2 (15:00→22:08)
[2017-07-07] MEDS: Gabapentin CAP(*) 300 MG PO SCH (22:07)
[2017-07-07] MEDS: Sodium Chloride 5% OPTH OINT* 3.5 gm TUBE BOTH EYES SCH (22:14)
[2017-07-08] MEDS: ZOSYN 3.375 GM Q12H per EXTENDED INFUSION IVPB SCH ×4 (00:49→13:55)
[2017-07-08 06:24] LABS: ABS Basophils 0.2 10^3/ul (0-0.2); ABS Eosinophils 0.1 10^3/ul (0-0.6); ABS Lymphocytes 0.3 10^3/ul (1.0-4.8); ABS Neutrophils 21.9 10^3/ul (1.5-7.7); Hematocrit 24 % (35-47); Mean Corpuscular HGB Conc 30 g/dl (31-36); Mean Corpuscular Hemoglobin 27 pg (27-31); Mean Corpuscular Volume 90 fL (80-97); Mean Platelet Volume 7.3 um3 (7.4-10.4); Platelet Count 362 10^3/ul (150-450); Red Blood Count 2.63 10^6/ul (4.0-5.4); Red Cell Distribution Width 21 % (10.5-15); White Blood Count 24.5 10^3/ul (3.5-10.8)
[2017-07-08 06:54] LABS: ABS Nucleated RBC 0 10^3/ul; Eosinophil % 0.6 % (0-6); Lymphocyte % 1.3 % (25-47); Nucleated Red Blood Cells % 0
[2017-07-08] MEDS: Pantoprazole IV* 80 MG in NS 0.9% 250 ML* 250 ML IV SCH ×3 (07:50→22:18)
[2017-07-08] MEDS: Calcium Carbonate CHEW TAB* 500 MG (TUMS) PO SCH ×2 (09:06→22:16)
[2017-07-08] MEDS: Oxybutynin TAB* 5 MG PO SCH (09:07)
[2017-07-08] MEDS: Potassium Chlor TAB* 20 MEQ TAB.ER PO SCH ×2 (09:07→23:18)
[2017-07-08] MEDS: Spironolactone TAB* 25 MG PO SCH (09:08)
[2017-07-08] MEDS: Fludrocortisone Acetate TAB* 0.1 MG PO SCH (09:08)
[2017-07-08] MEDS: Phenytoin CAP(*) 100 MG CAP.ER PO SCH ×2 (09:08→22:18)
[2017-07-08] MEDS: CMC:Midodrine (NF) 5 MG TAB PO SCH ×3 (09:08→22:16)
[2017-07-08] MEDS: Sodium Chloride 2% OPTH.SOL* 15 ML BTL BOTH EYES SCH ×3 (09:15→22:19)
--- NOTE | 2017-07-08 09:49 | PN ---
Subjective - Subjective Reason for Note: Progress Note History: She is sleepy today - she wakes, but is not spontaneously talking like yesterday. She denies new symptoms and is not coughing/bringing up sputum. She is not hungry and has got behind on her fluids Active Problems: Active Problems Elevated troponin I level (Acute) R74.8 Infection (Acute) B99.9 Iron deficiency anemia (Acute) D50.9 Melena (Acute) K92.1 Osteomalacia (Acute) M83.9 Presence of intrathecal pump (Acute) Z96.89 Urinary tract infection (Acute) Bariatric surgery status (Chronic) Z98.84 Chronic pain syndrome (Chronic) G89.4 Compression fracture of L3 lumbar vertebra (Chronic) S32.030A Esophageal reflux disease (Chronic 03/30/14) K21.9 L2 vertebral fracture (Chronic) S32.029A Malabsorption (Chronic) Neurogenic bladder (Chronic) N31.9 Osteoporosis (Chronic) M81.0 Pancreatic insufficiency (Chronic) K86.8 Weakness (Chronic 03/30/14) R53.1 Current Medications: Current Medications Calcium Carbonate (Tums*) 1,000 mg PO BID [facility] Last Admin: 07/08/17 09:06 Dose: 1,000 mg Fludrocortisone Acetate (Florinef Tab*) 0.1 mg PO QAM [facility] Last Admin: 07/08/17 09:08 Dose: 0.1 mg Gabapentin (Neurontin Cap(*)) 300 mg PO BEDTIME [facility] Last Admin: 07/07/17 22:07 Dose: 300 mg Hydromorphone HCl (Dilaudid Tab*) 6 mg PO Q4H PRN PRN Reason: PAIN Last Admin: 07/08/17 09:08 Dose: 6 mg Pantoprazole Sodium 80 mg/ (Sodium Chloride) 250 mls @ 25 mls/hr IV Q10H [facility] Last Admin: 07/08/17 09:16 Dose: 25 mls/hr Piperacillin Sod/Tazobactam (Sod 3.375 gm/ Sodium Chloride) 100 mls @ 25 mls/ hr IVPB Q12H [facility] Last Admin: 07/08/17 00:49 Dose: 25 mls/hr Midodrine (Midodrine (Nf)) 2.5 mg PO TID [facility] PRN Reason: Protocol Last Admin: 07/08/17 09:08 Dose: 2.5 mg Oxybutynin Chloride (Ditropan Tab*) 5 mg PO DAILY [facility] Last Admin: 07/08/17 09:07 Dose: 5 mg Pharmacy Consult (Zosyn Per Pharmacy*) 1 note FOLLOW UP .ZOSYN PER PHARMACY [facility] Phenytoin Sodium (Dilantin Cap(*)) 100 mg PO BID [facility] Last Admin: 07/08/17 09:08 Dose: 100 mg Polyethylene Glycol/Electrolytes (Miralax*) 17 gm PO DAILY PRN PRN Reason: CONSTIPATION Potassium Chloride (Klor Con Er Tab*) 40 meq PO BID [facility] Last Admin: 07/08/17 09:07 Dose: 40 meq Prochlorperazine (Compazine Supp*) 25 mg TN Q4H PRN PRN Reason: VOMITING Sodium Chloride (Hypertonic) (Niko 128 Opth 2% Alejandro*) 1 drop BOTH EYES TID [facility] Last Admin: 07/08/17 09:15 Dose: 1 drp Sodium Chloride (Hypertonic) (Niko 128- 5% Opth Oint*) 1 applic BOTH EYES BEDTIME [facility] Last Admin: 07/07/17 22:14 Dose: 1 applic Spironolactone (Aldactone Tab*) 25 mg PO QAM [facility] Last Admin: 07/08/17 09:08 Dose: 25 mg Sumatriptan Succinate (Imitrex Tab*) 50 mg PO DAILY PRN PRN Reason: MIGRAINE HEADACHE Home Medications: Home Medications Medication Instructions Recorded Confirmed Type Bumetanide TAB* [Bumex 1 MG TAB*] 1 mg PO DAILY 07/06/17 07/06/17 History Calcium Carbonate CHEW TAB* [Tums*] 1,000 mg PO BID 07/06/17 07/06/17 History Chlorhexidine MOUTHWASH 0.12%* 15 ml SWISH SPIT DAILY 07/06/17 07/06/17 History [Peridex Mouth Wash 0.12%*] Cyanocobalamin INJ * [Vitamin B12 1,000 mcg IM .TWICE A MONTH 07/06/17 07/06/17 History INJ *] EPINEPHrine SYR* [EPINEPHphrine 0.1 mg IM ONCE PRN 07/06/17 07/06/17 History SYR*] Fludrocortisone Acetate TAB* 0.1 mg PO QAM 07/06/17 07/06/17 History [Florinef TAB*] Gabapentin CAP(*) [Neurontin 300 300 mg PO BEDTIME 07/06/17 07/06/17 History CAP(*)] HYDROmorphone TAB* [Dilaudid TAB*] 6 - 8 mg PO Q4H PRN MDD 4.5 tablets 07/06/17 07/06/17 History Metolazone TAB* [Zaroxolyn TAB*] 2.5 mg PO DAILY PRN 07/06/17 07/06/17 History Midodrine (NF) 2.5 mg PO TID 07/06/17 07/06/17 History Nitroglycerin TAB 0.4 MG* 0.4 mg SL Q5M PRN 07/06/17 07/06/17 History Oxybutynin TAB* [Ditropan TAB*] 5 mg PO DAILY 07/06/17 07/06/17 History Phenytoin CAP(*) [Dilantin CAP(*)] 100 mg PO BID 07/06/17 07/06/17 History Phytonadione INJ (Adult)* [Vitamin 1 ml IM WEEKLY 07/06/17 07/06/17 History K1 INJ (Adult)*] Polyethylene Glycol 3350* 17 gm PO DAILY PRN 07/06/17 07/06/17 History [Miralax*] Potassium Chlor TAB* [Klor Con ER 40 meq PO BID 07/06/17 07/06/17 History TAB*] Prochlorperazine SUPP* [Compazine 25 mg TN Q4H PRN 07/06/17 07/06/17 History Supp*] SUMAtriptan TAB* [Imitrex TAB*] 50 mg PO DAILY PRN 07/06/17 07/06/17 History Sodium Chloride 2% OPTH.ALEJANDRO* [Niko 1 drop BOTH EYES TID 07/06/17 07/06/17 History 128 Opth 2% Alejandro*] Sodium Chloride 5% OPTH OINT* 1 applic BOTH EYES BEDTIME 07/06/17 07/06/17 History [Niko 128- 5% Opth Oint*] Spironolactone TAB* [Aldactone 25 mg PO QAM 07/06/17 07/06/17 History TAB*] Allergies: Allergies Allergy/AdvReac Type Severity Reaction Status Date / Time codeine AdvReac Unknown Unknown Verified 07/07/17 07:31 Reaction Details oxymorphone AdvReac Unknown Unknown Verified 07/07/17 07:31 Reaction Details tramadol AdvReac Unknown Unknown Verified 07/07/17 07:31 Reaction Details bee stings Allergy Severe anaphylaxis Uncoded 10/18/15 13:21 coffee Allergy Unknown Unknown Uncoded 10/18/15 13:21 Reaction Details Objective - Vital Signs Vital Signs: Vital Signs 07/07/17 07/07/17 07/07/17 15:26 19:35 20:00 Temperature 97.8 F 98.8 F Pulse Rate 82 89 Respiratory 16 20 20 Rate Blood Pressure 115/74 93/51 (mmHg) O2 Sat by Pulse 96 93 93 Oximetry 07/07/17 07/08/17 07/08/17 22:07 00:39 03:36 Temperature 98.2 F Pulse Rate 96 Respiratory 18 20 20 Rate Blood Pressure 105/38 (mmHg) O2 Sat by Pulse 86 Oximetry 07/08/17 07/08/17 07/08/17 04:07 07:39 08:00 Temperature Pulse Rate 95 Respiratory 20 Rate Blood Pressure (mmHg) O2 Sat by Pulse 97 98 Oximetry 07/08/17 07/08/17 08:11 09:08 Temperature 98.8 F Pulse Rate 93 Respiratory 18 20 Rate Blood Pressure 99/34 (mmHg) O2 Sat by Pulse 98 Oximetry - Intake and Output Intake and Output: Intake & Output 07/05/17 07/06/17 07/07/17 07/08/17 11:59 11:59 11:59 11:59 Intake Total 1782 1007 Output Total 200 600 Balance 1582 407 Weight 110 lb Intake: IV Fluids 1374 315 ABX - ZOSYN 83 KVO W/PIGGYBACK ZOSYN 92 NS (0.9%) 274 protonix 140 IVPB 110 ABX - ZOSYN 110 Medicated IV 452 PROTONIX 452 Oral 0 240 Packed Cells 298 Output: Urine 200 Alva 600 Other: Estimated Void Medium # Bowel Movements 0 Estimated Stool Amount Medium # Voids 1 ADLs: Meal Record Start: 07/06/17 23: 47 Freq: DAILY@0900,1400,1800 Status: Active Protocol: Created 07/06/17 23:47 System (Rec: 07/06/17 23:47 System TELE-[facility] [place]) Document 07/07/17 09:00 [id number] (Rec: 07/07/17 10:29 [id number]) Document 07/07/17 14:00 [id number] (Rec: 07/07/17 15:40 [id number] TELE-C09) Document 07/07/17 18:00 [id number] (Rec: 07/07/17 19:33 [id number] TELE-C01) Intake and Output Start: 07/06/17 23: 47 Freq: DAILY@0600,1400,2200 Status: Active Protocol: Created 07/06/17 23:47 System (Rec: 07/06/17 23:47 System [email or web address]) Document 07/07/17 06:00 [id number] (Rec: 07/07/17 06:15 [id number] TELE-C34) Document 07/07/17 07:22 [id number] (Rec: 07/07/17 07:23 [id number] TELE-C10) Document 07/07/17 14:00 [id number] (Rec: 07/07/17 15:40 [id number] TELE-C09) Document 07/08/17 06:00 [id number] (Rec: 07/08/17 06:15 [id number] TELE-C11) - Physical Exam General Physical Exam Comment: She is asleep, but rousable General: No Cyanosis, Yes Anemia, No Jaundice, No Clubbing Skin: Normal: Rash Lungs and Chest: Yes: Chest Expansion Full, Chest Expansion Symetrica, Percussion Note Resonant, Vessicular Breath Sounds. No: Crackles, Wheezes Heart Rate and Rhythm: Regular Additional Cardiovascular: Yes: Normal Heart Sounds. No: Heart Murmur, Pedal Edema Abdominal Exam: Yes: Soft, Bowel Sounds Present. No: Distention, Abdominal Tenderness Results - Results Lab Results: Laboratory Results - last 24 hr 07/08/17 07/08/17 07/08/17 06:01 06:01 06:01 WBC 24.5 H RBC 2.63 L Hgb 7.0 L Hct 24 L MCV 90 MCH 27 MCHC 30 L RDW 21 H Plt Count 362 MPV 7.3 L Neut % (Auto) 89.3 H Lymph % (Auto) 1.3 L [place] % (Auto) 8.2 H Eos % (Auto) 0.6 Baso % (Auto) 0.6 Absolute Neuts (auto) 21.9 H Absolute Lymphs (auto) 0.3 L Absolute Monos (auto) 2.0 H Absolute Eos (auto) 0.1 Absolute Basos (auto) 0.2 Absolute Nucleated RBC 0 Nucleated RBC % 0 Sodium 143 Potassium TNP Chloride 117 H Carbon Dioxide 17 L Anion Gap 9 BUN 43 H Creatinine 1.80 H Est GFR ( Amer) 34.7 Est GFR (Non-Af Amer) 27.0 BUN/Creatinine Ratio 23.9 H Glucose 85 Calcium 7.5 L C-Reactive Protein 227.50 H Procalcitonin 1.0 H Other Results/Reports: RUN DATE: 07/08/17 [facility] LAB LIVE PAGE 1 RUN TIME: [address] [place] [id number] Specimen Inquiry Name: YING SINGH : [address]: Bruce Fernandez MD Acct: [id number] Unit: [id number] AGE: 82 Location: [place] [address] Re07/06/17 SEX: F Status: ADM IN SPEC: [id number] POWER: 07/06/17-[address]: Tai Bray MD REQ: [id number] RECD: 07/06/17 _ STATUS: COMP OTHR DR: Bruce Fernandez MD SOURCE: URINE SPDESC: ORDERED: Urine Culture Procedure Result Reported Site Urine Culture Final 07/07/17- 1306 ML Mixed isac; possible contamination. Suggest resubmission. * ML - Main Lab . END OF REPORT DEPARTMENT OF PATHOLOGY, [address] [place] [id number] Samuel Garcia M.D. Director [facility] # [id number] Assessment - Problem List Assessment: Patient Problems Elevated troponin I level (Acute) Infection (Acute) Iron deficiency anemia (Acute) Melena (Acute) Osteomalacia (Acute) Presence of intrathecal pump (Acute) Urinary tract infection (Acute) Bariatric surgery status (Chronic) Chronic pain syndrome (Chronic) Compression fracture of L3 lumbar vertebra (Chronic) Esophageal reflux disease (Chronic 03/30/14) L2 vertebral fracture (Chronic) Malabsorption (Chronic) Neurogenic bladder (Chronic) Osteoporosis (Chronic) Pancreatic insufficiency (Chronic) Weakness (Chronic 03/30/14) Physical medicine and rehabilitation procedures (Acute) Aortic stenosis (Chronic) Plan: Infection/Urinary tract infection (Acute) ruled out Her CRP, WBCs, neut% have all come down. Her procalcitonin yesterday was 1.0. I think Zosyn is working. Her blood cultures are negative. We are checking a transthoracic echocardiogram for vegetations - but it seems unlikely with negative blood cultures. I will repeat the CXR today to look for infiltrate. Elevated troponin I level (Acute) She has no chest pain today. Telemetry is benign. I am awaiting her transthoracic echocardiogram to determine if she has had any new regional wall motion abnormalities. Iron deficiency anemia (Acute) Her ferritin requires repeating. I will start her on iron infusions. Melena (Acute) She needs a GI consult - I will wait until her infections is improved Osteomalacia (Acute) secondary diagnosis Presence of intrathecal pump (Acute) secondary diagnosis Bariatric surgery status (Chronic) Chronic pain syndrome (Chronic) secondary diagnosis Compression fracture of L3 lumbar vertebra (Chronic) secondary diagnosis Esophageal reflux disease (Chronic 03/30/14) secondary diagnosis L2 vertebral fracture (Chronic) secondary diagnosis Malabsorption (Chronic) secondary diagnosis Neurogenic bladder (Chronic) secondary diagnosis Osteoporosis (Chronic) secondary diagnosis Pancreatic insufficiency (Chronic) secondary diagnosis Aortic stenosis (Chronic) We are checking her transthoracic echocardiogram. She is more dehydrated, I will provide IVF. Otherwise, she is improving. I am not sure if she is sleepy or encephalopathic. I called her niece Camryn Owusu and updated.
[2017-07-08] MEDS ORDERED: Naloxone* 0.4 MG/ML 1 ML VIAL ONE ×2 (10:14→10:43)
[2017-07-08] MEDS ORDERED: Naloxone* 0.4 MG/ML 1 ML VIAL IV PUSH PRN ×3 (10:35→12:22)
--- NOTE | 2017-07-08 10:35 | PN ---
Progress Note - Progress Note Date of Service: 07/08/17 Note: She had an ABC alert after I saw her that was noted by the heading saw operator. She stopped breathing. She responded to narcan. This is likely due to excessive opioids. She is now in the ICU. I will add an order for Narcan and also scale back her opioiods. I spoke to the patient - she is alert and able to follow simple commands/respond to questions. Dr. Michel will consult for intensivists
--- NOTE | 2017-07-08 11:00 | PN ---
Progress Note - Progress Note Date of Service: 07/08/17 Note: Arrived to bedside after ABC alert was called. Patient with respiratory arrest. Sinus Tach on monitor with a pulse. Patient was bagged. Dr. Fernandez arrived mentioned concern for high opiate use. Narcan given with good effect - started spontaneous respirations and opened her eyes. Patient transferred to ICU on oxymask with good sats. Care under Dr. Fernandez
[2017-07-08] MEDS: Iron Sucrose* 200 MG in NS 0.9% 100 ML* 100 ML IVPB SCH (11:09)
[2017-07-08] MEDS ORDERED: Naloxone* 0.4 MG/ML 1 ML VIAL IV PUSH ONE ×2 (11:38→11:46)
--- NOTE | 2017-07-08 11:52 | CONSULT ---
Consult Consult: CRITICAL CARE MEDICINE DATE: 07/08/17 TIME: 1100 PRIMARY CARE PROVIDER: REFERRING PROVIDER: REASON/CHIEF COMPLAINT: mods, now with resp arrest s/p narcan HISTORY OF PRESENT ILLNESS: 82 yo F admitted with melana gib with acute on chronic anemia and multiple co-morbidites. This am was poorly responsive needing bag ventilation with abc alert. given narcan with brisk response. taken to icu. still with some somulence but arousable and communication but lethargic. REVIEW OF SYSTEMS: As per HPI, limited secondary to acuity. PAST MEDICAL HISTORY: As per HPI and records. chronic pain with intrathecal pump in left abd, neurogenic bladder with self cath, orthostatic hypotension, h/ o dvt/pe, left kip fx, ckd 3, gerd MEDICATIONS: current Reviewed. ALLERGIES: Reviewed. multiple SOCIAL HISTORY: Reviewed. FAMILY HISTORY: Noncontributory at present. PHYSICAL EXAM: overall weak and muscle loss evident Vital Signs: Reviewed. hr 80s. rr low teens. BP ok on low side Neurologic: awakens but lethragic. HEENT: anciteric, perrl Cardiovascular: distant, reg, loud as Respiratory: clear but shallow Abdomen: obese, soft Extremities: warm, chronic changes Access: 2 piv LABS: Reviewed. IMAGING: Reviewed. MEDICATIONS: Reviewed. ASSESSMENT: 82 F Acute resp insufficiency secondary to narcotics, responsive to narcan but needing icu observation (in fact, while typing pt more obtunded and requiring further narcan with slow but eventual arousal). GIB with melana Acute on chronic anemia CKD 3 Leukocytosis - tx for uti vs maybe aspiration on basilar pna - although resp not primary sx Mod-severe PLAN: Neurologic: better post narcan. may end up needing narcan gtt. time. Cardiovascular: perfusing but mod and can't afford low flow states. continued chronic orthostatic regimen. chronic f/u Respiratory: EtCO2 monitoring and icu obs. narcan gtt if hypoventilation. bipap if needed short course but seems to be attempting to maintain. ABG if needing to prove con-cominant ailment, otherwise can hold off Gastrointestinal: npo for the moment. ppi gtt. gi consult pending Renal/Metabolic: f/u chronic dz; bun up with gib Infectious Disease: on zosyn with broad coverage that is adequete for now. f/u wbc Hematology: may need to f/u peripheral smear if wbc lingering ailment. Endocrine: replacements. Musculoskeletal: icu obs for now. avoid deconditioning Psych/Social: d/w dr. briones Supportive and preventative care as ordered. SUP: on ppi VTE prophylaxis: scds Disposition: ICU will follow along and hopefully can turn around to floor tomorrow Code Status: Full presently Critical Care Time: 40min Austin Michel DO
--- NOTE | 2017-07-08 12:21 | ECHO ---
Patient: YING SINGH [facility] Rec#: [id number] : 1935 Date: 07/08/2017 Age: 82y Height: 150 cm / 59.1 in Weight: 50 kg / 110.2 lbs Sex: F BSA: 1.4 Room#: 452 Admit Date#: 07/06/2017 Type: Inpatient Referring: Emir Garsia MD Reading: Diego Cook MD Wharf Worker: Mirtha Betts RN RDCS CC: Bruce Fernandez MD Transthoracic Echocardiogram Indication: Elevated troponin levels BP: 105/38 HR: 93 Rhythm: NSR Findings History: Aortic stenosis, DVT/PE, orthostatic hypotension, Mainor-en-Y gastric bypass, chronic back pain, subdural hematoma, former smoker Technical Comments: The study quality is fair. The study is technically limited due to patient body habitus. The study is technically limited due to the patient's smoking history. The study was technically limited due to the patient's inability to lay in the left lateral decubitus position. The SSN view was not obtained as the patient was unable to lift her chin. Left Ventricle: The left ventricular chamber size is decreased. There is no left ventricular hypertrophy. There is increased basal septal hypertrophy noted without evidence of an increased gradient across the left ventricular outflow tract. Global left ventricular wall motion and contractility are within normal limits. There is normal left ventricular systolic function. The estimated ejection fraction is 55-60%. The assessment of diastolic function is non-diagnostic. Left Atrium: The left atrium is mildly dilated. Right Ventricle: The right ventricular cavity size is normal. The right ventricular global systolic function is normal. Right Atrium: The right atrial cavity size is normal. Aortic Valve: The aortic valve leaflets are moderately thickened. Systolic excursion of the aortic valve cusps is reduced. There is no evidence of aortic regurgitation. There is moderate aortic stenosis. The mean gradient of the aortic valve is 26.3 mmHg. The peak instantaneous gradient of the aortic valve is 45.6 mmHg. The aortic valve area, by peak velocities, is calculated at 1 cm2. The aortic valve area, by VTI's, is calculated at 1.1 cm2. The highest aortic valve velocity was obtained with the standard probe from the A5C view. Mitral Valve: The mitral valve leaflets are mildly thickened. There is mild mitral regurgitation. There is no evidence of mitral stenosis. Tricuspid Valve: The tricuspid valve leaflets are normal. There is mild tricuspid regurgitation. There is evidence of moderate pulmonary hypertension. There is no tricuspid stenosis. Pulmonic Valve: The pulmonic valve structure is not well visualized. There is a trace pulmonic regurgitation. Pericardium: There is no significant pericardial effusion. A pericardial fat pad is visualized. Aorta: The ascending aorta is not well visualized. The aortic arch is not well visualized. There is no dilation of the aortic root. Pulmonary Artery: The main pulmonary artery is not well visualized. Venous: The venous system is not well visualized. The inferior vena cava is not visualized. Summary: There are no significant changes when compared to the previous study done on 06/01/15 Conclusions There is increased basal septal hypertrophy noted without evidence of an increased gradient across the left ventricular outflow tract. Global left ventricular wall motion and contractility are within normal limits. There is normal left ventricular systolic function. The estimated ejection fraction is 55-60%. Systolic excursion of the aortic valve cusps is reduced. The mean gradient of the aortic valve is 26.3 mmHg. There is moderate aortic stenosis. There is no evidence of aortic regurgitation. There is mild mitral regurgitation. There is mild tricuspid regurgitation. There is evidence of moderate pulmonary hypertension. There is no significant pericardial effusion. Measurements Name Value Normal Range RVDdMajor (2D) 3.4 cm (2.2 - 4.4) RAd ISD 4CH 4.9 cm (3.4 - 4.9) RA (A4C)W 4 cm (2.9 - 4.6) IVSd (2D) 0.9 cm (0.6 - 1) LVPWd (2D) 0.9 cm (0.6 - 1) LVIDd (2D) 3.5 cm (3.6 - 5.4) LVIDs (2D) 2.6 cm - LV FS (2D) 26 % (25 - 45) Aortic Annulus 2 cm (1.4 - 2.6) Ao root diameter (2D) 2.9 cm (2.1 - 3.5) LA dimension (AP) 2D 3.1 cm (2.3 - 3.8) LAd ISD 4CH 5.4 cm (2.9 - 5.3) LA ISD 4CH W 4.4 cm (2.5 - 4.5) Name Value Normal Range MV E-wave Vmax 0.77 m/sec - MV deceleration time 247 msec - MV A-wave Vmax 0.65 m/sec - MV E:A ratio 1.2 ratio - LV septal e' Vmax 0.06 m/sec - LV lateral e' Vmax 0.09 m/sec - LV E:e' septal ratio 12.8 ratio - LV E:e' lateral ratio 8.6 ratio - Name Value Normal Range AV Vmax 3.3 m/sec - AV VTI 53.9 cm - AV peak gradient 45.6 mmHg - AV mean gradient 26.3 mmHg - LVOT diameter 2 cm - LVOT Vmax 1.1 m/sec - LVOT VTI 19.3 cm - LVOT peak gradient 4.9 mmHg - LVOT mean gradient 2.7 mmHg - DOI (VTI) 0.36 ratio - DOI (Vmax) 0.33 ratio - ANALI (continuity Vmax) 1 cm2 - ANALI (continuity VTI) 1.1 cm2 - Name Value Normal Range TR Vmax 3.4 m/sec - TR peak gradient 46 mmHg - RAP 8 mmHg - RVSP 54 mmHg - Name Value Normal Range PV Vmax 0.79 m/sec -
[2017-07-08] MEDS ORDERED: fentaNYL* 50 MCG/ML 2 ML VIAL (100 MCG VIAL) IV SLOW PU PRN (12:23)
--- NOTE | 2017-07-08 13:12 | RAD ---
Indication: Fever, pneumonia. Comparison: July 07, [address] July 06, 2017 chest radiograph. Technique: Upright AP 1245 hours Report: Cardiomegaly, prominent ill-defined central pulmonary vasculature, diffuse prominence of interstitial markings with thickened peripheral intralobular septa. Small bilateral pleural effusions. Retrocardiac hiatal hernia visualized at the RIGHT heart margin. Percutaneous pacing pads noted. IMPRESSION: Pulmonary vascular congestion and interstitial edema with associated small pleural effusions with interval worsening compared with the July 06, 2017 exam.
[2017-07-08] MEDS: Gabapentin CAP(*) 300 MG PO SCH (22:18)
[2017-07-08] MEDS: Sodium Chloride 5% OPTH OINT* 3.5 gm TUBE BOTH EYES SCH (22:19)
[2017-07-08] MEDS: Potassium Chloride LIQUID* 20 MEQ PACKET PO SCH (23:17)
[2017-07-09] MEDS: ZOSYN 3.375 GM Q12H per EXTENDED INFUSION IVPB SCH ×6 (00:23→23:21)
[2017-07-09] MEDS: Pantoprazole IV* 80 MG in NS 0.9% 250 ML* 250 ML IV SCH ×2 (04:00→09:37)
[2017-07-09 06:19] LABS: Hematocrit 19 % (35-47); Hemoglobin 5.5 g/dl (12.0-16.0); Mean Corpuscular HGB Conc 30 g/dl (31-36); Mean Corpuscular Hemoglobin 28 pg (27-31); Mean Corpuscular Volume 94 fL (80-97); Platelet Count 333 10^3/ul (150-450); Red Blood Count 1.97 10^6/ul (4.0-5.4); Red Cell Distribution Width 22 % (10.5-15); White Blood Count 14.9 10^3/ul (3.5-10.8)
[2017-07-09 06:20] LABS: ABS Basophils 0.1 10^3/ul (0-0.2); ABS Eosinophils 0.1 10^3/ul (0-0.6); ABS Lymphocytes 0.3 10^3/ul (1.0-4.8); ABS Monocytes 1.3 10^3/ul (0-0.8)
--- NOTE | 2017-07-09 06:25 | PN ---
Hospitalist Progress Note Date of Service: 07/09/17 Ordered 2 units of PRBC with type and screen given known recent GIB with Hgb of 5.5.
[2017-07-09 06:27] LABS: EGFR Non-African American 33.1 (>60)
[2017-07-09 06:59] LABS: Monocytes % 4 % (0-7)
[2017-07-09] MEDS ORDERED: Calcium CHLORIDE 10% SYRINGE* 1 GM in D5W 100 ML BAG* 100 ML IV ONE (07:15)
[2017-07-09] MEDS: Potassium Chloride LIQUID* 20 MEQ PACKET PO SCH (08:29)
[2017-07-09] MEDS: Fludrocortisone Acetate TAB* 0.1 MG PO SCH (08:29)
[2017-07-09] MEDS: Oxybutynin TAB* 5 MG PO SCH (08:29)
[2017-07-09] MEDS: CMC:Midodrine (NF) 5 MG TAB PO SCH (08:29)
[2017-07-09] MEDS: Calcium Carbonate CHEW TAB* 500 MG (TUMS) PO SCH ×2 (08:29→21:25)
[2017-07-09] MEDS: Phenytoin CAP(*) 100 MG CAP.ER PO SCH ×3 (08:29→22:21)
[2017-07-09] MEDS: Spironolactone TAB* 25 MG PO SCH (08:30)
[2017-07-09] MEDS: Sodium Chloride 2% OPTH.SOL* 15 ML BTL BOTH EYES SCH ×3 (08:30→22:24)
[2017-07-09] MEDS: Iron Sucrose* 200 MG in NS 0.9% 100 ML* 100 ML IVPB SCH (10:25)
--- NOTE | 2017-07-09 11:09 | PN ---
Progress Note - Progress Note Date of Service: 07/09/17 Note: CRITICAL CARE MEDICINE DATE: 07/09/17 TIME: 900 SUBJECTIVE: Patient seen and examined. daughter present. being transfused from am labs. on bipap from am. PHYSICAL EXAM: Vital Signs: Reviewed. hr 80s. BP low at times but better this am. Neurologic: awakens but lethragic still. verbalizes but on bipap and difficult to fully understand but c/o pains all over HEENT: anciteric, perrl Cardiovascular: distant, reg, loud as Respiratory: mild coarseness but with good vol on bipap Abdomen: obese, soft Extremities: warm, chronic changes Access: 2 piv LABS: Reviewed. IMAGING: Reviewed. MEDICATIONS: Reviewed. ASSESSMENT: 82 F Acute resp insufficiency secondary to narcotics with Acute hypercapnic respiratory failure GIB with melana Acute on chronic anemia, requiring trasfusion CKD 3 Hyperchloremic acidosis Leukocytosis - tx for uti vs maybe aspiration on basilar pna chronic PLAN: Neurologic: able to maintain but not back to baseline yet. still with pain complaint and therefore not much utility in further narcan, but I do think the lingering narcs allowed for hypoventilation during night to build up some. time Cardiovascular: perfusing. vol status intact intravascularly, mild interstially up perhaps and component of cellular water loss and salt overload. Can place on D5 and hopefully allow renal recovery phase and better water balance post. can consider thiazide mobilization but blood loss and need a Na class c driver at the moment, plus steroid needs. need time to equilibrate. Respiratory: bipap best medicine this am. can try her back off around noon today. kyphosis and basilar atelectasis not helping, but non-labored and needs to find her own resp balance with med needs, plus declining function status and thrivability with blodd losses. Gastrointestinal: clears later as needing her po meds too. remain on ppi gtt but change to dextrose. gi pending but no acute interventions given acuity. no overt gib overnight for degree of Hb losses. Renal/Metabolic: f/u chronic dz; bun up with gib Infectious Disease: on zosyn with broad coverage that is adequete for now. f/u wbc Hematology: 2 units prbcs today and f/u equilibration. may need marrow or lytic workup ultimately. path comment from cbc pending although wbc down and diff better today. iron replacements. Endocrine: florinef. adjusted midodrine up for now. Musculoskeletal: icu care needs. f/u sarcal decub and avoid deconditioning Psych/Social: still need to balance chronic pain needs. d/w pts daughter. Supportive and preventative care as ordered. SUP: on ppi VTE prophylaxis: scds Disposition: ICU today Code Status: Full presently Critical Care Time: 35min FRenee Michel DO
[2017-07-09] MEDS: PANTOPRAZOLE IV SCH ×2 (12:06→22:21)
[2017-07-09] MEDS: D5W IV SCH ×2 (12:06→22:21)
[2017-07-09] MEDS: D5W 1000 ML BAG* 1,000 ML IV SCH (12:12)
[2017-07-09] MEDS: CMC: Midodrine (NF) 5 MG TAB PO SCH ×2 (14:07→22:20)
[2017-07-09] MEDS: fentaNYL* 50 MCG/ML 2 ML VIAL (100 MCG VIAL) IV PRN (21:40)
[2017-07-09] MEDS ORDERED: fentaNYL* 50 MCG/ML 2 ML VIAL (100 MCG VIAL) ONE (21:44)
[2017-07-09] MEDS: Sodium Chloride 5% OPTH OINT* 3.5 gm TUBE BOTH EYES SCH (22:24)
[2017-07-09] MEDS: Gabapentin CAP(*) 300 MG PO SCH (23:04)
[2017-07-10] MEDS: fentaNYL* 50 MCG/ML 2 ML VIAL (100 MCG VIAL) IV PRN ×3 (00:28→17:14)
[2017-07-10 02:42] LABS: Hematocrit 37 % (35-47); Hemoglobin 11.2 g/dl (12.0-16.0)
[2017-07-10 03:25] LABS: EGFR Non-African American 22.4 (>60)
[2017-07-10 03:26] LABS: Hematocrit 37 % (35-47); Hemoglobin 11.2 g/dl (12.0-16.0); Mean Corpuscular HGB Conc 31 g/dl (31-36); Mean Corpuscular Hemoglobin 28 pg (27-31); Mean Corpuscular Volume 91 fL (80-97); Mean Platelet Volume 6.9 um3 (7.4-10.4); Platelet Count 449 10^3/ul (150-450); Red Blood Count 4.03 10^6/ul (4.0-5.4); Red Cell Distribution Width 23 % (10.5-15); White Blood Count 21.7 10^3/ul (3.5-10.8)
[2017-07-10] MEDS ORDERED: Insulin REGULAR(*) 1 UNITS UNIT IV PUSH ONE (03:38)
[2017-07-10] MEDS ORDERED: Dextrose 50% Syringe 50 ML* 25 GM/50 ML SYRINGE IV PUSH PRN (03:38)
--- NOTE | 2017-07-10 03:43 | PN ---
Hospitalist Progress Note Date of Service: 07/10/17 Text-paged by Usha regarding mildly elevated potassium levels. Given renal failure, I opted to avoid Kayexalate and had given 50 g of D50 IV with 10 unts of Insulin. Will repeat potassium levels by 0700 and will defer with morning team to further adjust therapeutics on re-eval.
[2017-07-10 03:45] LABS: ABS Basophils 0.1 10^3/ul (0-0.2); ABS Eosinophils 0.2 10^3/ul (0-0.6); ABS Lymphocytes 0.3 10^3/ul (1.0-4.8); ABS Monocytes 2.4 10^3/ul (0-0.8); ABS Neutrophils 18.7 10^3/ul (1.5-7.7)
[2017-07-10 03:50] LABS: ABS Nucleated RBC 0 10^3/ul; Lymphocyte % 1.5 % (25-47); Nucleated Red Blood Cells % 0.1
[2017-07-10] MEDS ORDERED: Insulin REGULAR(*) 1 UNITS UNIT ONE (03:54)
[2017-07-10 08:27] LABS: INR 0.9 (0.77-1.02)
[2017-07-10] MEDS: Calcium Carbonate CHEW TAB* 500 MG (TUMS) PO SCH ×3 (09:54→21:57)
[2017-07-10] MEDS: Fludrocortisone Acetate TAB* 0.1 MG PO SCH ×2 (09:55→15:18)
[2017-07-10] MEDS: Phenytoin CAP(*) 100 MG CAP.ER PO SCH ×3 (09:55→21:58)
[2017-07-10] MEDS: CMC: Midodrine (NF) 5 MG TAB PO SCH ×5 (09:55→21:58)
[2017-07-10] MEDS: Oxybutynin TAB* 5 MG PO SCH ×2 (09:55→15:18)
[2017-07-10] MEDS: Iron Sucrose* 200 MG in NS 0.9% 100 ML* 100 ML IVPB SCH (09:56)
[2017-07-10] MEDS: Sodium Chloride 2% OPTH.SOL* 15 ML BTL BOTH EYES SCH ×5 (09:56→22:10)
[2017-07-10] MEDS: D5W IV SCH ×2 (10:42→16:50)
[2017-07-10] MEDS: PANTOPRAZOLE IV SCH ×2 (10:42→16:50)
[2017-07-10] MEDS: D5W 1000 ML BAG* 1,000 ML IV SCH (11:05)
[2017-07-10] MEDS ORDERED: Furosemide IV* 10 MG/ML VIAL (40 MG) IV SLOW PU ONE (11:34)
[2017-07-10] MEDS: ZOSYN 3.375 GM Q12H per EXTENDED INFUSION IVPB SCH ×2 (11:47)
--- NOTE | 2017-07-10 12:35 | PN ---
Progress Note - Progress Note Date of Service: 07/10/17 Note: CRITICAL CARE MEDICINE DATE: 07/10/17 TIME: 1000 SUBJECTIVE: Patient seen and examined. daughter at bedside. did not wear bipap overnight PHYSICAL EXAM: Vital Signs: Reviewed. hr 80s. BP holding better. rr teens. Neurologic: awakens but lethargic still. verbalizes pain. back on bipap this am. hasn't returned to baseline HEENT: anciteric, perrl Cardiovascular: distant, reg, loud as Respiratory: mild coarseness but stable Abdomen: obese, soft Extremities: warm, chronic changes, dep edema Access: picc LABS: Reviewed. labs abn with error this am IMAGING: Reviewed. MEDICATIONS: Reviewed. ASSESSMENT: 82 F Acute resp insufficiency secondary to narcotics with Acute hypercapnic respiratory failure GIB with melana Acute on chronic anemia, requiring trasfusion CKD 3 Hyperchloremic acidosis Leukocytosis - tx for aspiration on basilar pna chronic PLAN: Neurologic: able to maintain but not back to baseline still. clearly still with pain. difficult balance. encephalopathy lingering. nonfocal Cardiovascular: perfusing. vol status up and see if she can mobilize today before she continues to decline with mods. come off iv water replacement later Respiratory: bipap today and then off later and with nocturnal tonight. kyphosis and basilar atelectasis more chronic ailments but in her overall state they certainly are not helping. Gastrointestinal: clears but not tolerating much. not stable for any gi interventions and no signs of active bleed. formed neg stool this am. covert ppi to bid. Renal/Metabolic: f/u chronic dz and repeat abn labs Infectious Disease: on zosyn with broad coverage that can complete after day 5 perhaps Hematology: repeat cbc. iron replacements. Endocrine: florinef. midodrine. Musculoskeletal: f/u stage 2 sarcal decub and avoid deconditioning Psych/Social: d/w daughter at bedisde. difficult balance and inability to thrive. Supportive and preventative care as ordered. SUP: on ppi VTE prophylaxis: scds but should start chemical prophylaxis soon if able Disposition: still requires ICU Code Status: Full presently Critical Care Time: 25min Austin Michel DO
[2017-07-10 14:59] LABS: Hematocrit 29 % (35-47); Mean Corpuscular HGB Conc 31 g/dl (31-36); Mean Corpuscular Hemoglobin 28 pg (27-31); Mean Corpuscular Volume 89 fL (80-97); Mean Platelet Volume 6.9 um3 (7.4-10.4); Platelet Count 354 10^3/ul (150-450); Red Blood Count 3.22 10^6/ul (4.0-5.4); Red Cell Distribution Width 23 % (10.5-15); White Blood Count 17.5 10^3/ul (3.5-10.8)
[2017-07-10 15:15] LABS: EGFR Non-African American 25.7 (>60)
[2017-07-10] MEDS: Gabapentin CAP(*) 300 MG PO SCH (21:58)
[2017-07-10] MEDS: Pantoprazole IV* 40 MG IV SCH (22:10)
[2017-07-10] MEDS: Sodium Chloride 5% OPTH OINT* 3.5 gm TUBE BOTH EYES SCH (22:10)
[2017-07-11] MEDS: ZOSYN 3.375 GM Q12H per EXTENDED INFUSION IVPB SCH ×4 (01:05→12:08)
[2017-07-11 04:41] LABS: Hematocrit 31 % (35-47); Hemoglobin 9.6 g/dl (12.0-16.0); Mean Corpuscular HGB Conc 31 g/dl (31-36); Mean Corpuscular Hemoglobin 28 pg (27-31); Mean Corpuscular Volume 88 fL (80-97); Platelet Count 358 10^3/ul (150-450); Red Blood Count 3.46 10^6/ul (4.0-5.4); Red Cell Distribution Width 22 % (10.5-15); White Blood Count 17.2 10^3/ul (3.5-10.8)
[2017-07-11 04:53] LABS: EGFR Non-African American 22.5 (>60)
[2017-07-11 05:11] LABS: ABS Basophils 0.1 10^3/ul (0-0.2); ABS Eosinophils 0.1 10^3/ul (0-0.6); ABS Lymphocytes 0.3 10^3/ul (1.0-4.8); ABS Monocytes 1.8 10^3/ul (0-0.8); ABS Neutrophils 14.9 10^3/ul (1.5-7.7); ABS Nucleated RBC 0 10^3/ul
[2017-07-11 05:15] LABS: Monocytes % 6 % (0-7)
[2017-07-11] MEDS: Iron Sucrose* 200 MG in NS 0.9% 100 ML* 100 ML IVPB SCH (08:49)
[2017-07-11] MEDS: Calcium Carbonate CHEW TAB* 500 MG (TUMS) PO SCH ×2 (08:53→22:05)
[2017-07-11] MEDS: Sodium Chloride 2% OPTH.SOL* 15 ML BTL BOTH EYES SCH ×3 (08:53→22:19)
[2017-07-11] MEDS ORDERED: fentaNYL* 50 MCG/ML 2 ML VIAL (100 MCG VIAL) IV SLOW PU ONE (10:00)
[2017-07-11] MEDS: Pantoprazole IV* 40 MG IV SCH ×2 (10:34→20:56)
[2017-07-11] MEDS: Fludrocortisone Acetate TAB* 0.1 MG PO SCH (10:57)
[2017-07-11] MEDS: Phenytoin CAP(*) 100 MG CAP.ER PO SCH ×2 (10:57→22:05)
[2017-07-11] MEDS: Oxybutynin TAB* 5 MG PO SCH (10:57)
[2017-07-11] MEDS: CMC: Midodrine (NF) 5 MG TAB PO SCH ×3 (10:57→22:05)
--- NOTE | 2017-07-11 13:06 | PN ---
Progress Note - Progress Note Date of Service: 07/11/17 Note: CRITICAL CARE MEDICINE DATE: 07/11/17 TIME: 900 SUBJECTIVE: Patient seen and examined. daughter at bedside. PHYSICAL EXAM: Vital Signs: Reviewed. hr 90s. BP holding. rr teens. Neurologic: awakens but lethargic to obtunded at times. verbalizes pain. bipap overnight. HEENT: anciteric, perrl Cardiovascular: distant, reg, loud as Respiratory: mild coarseness but stable without great effort Abdomen: obese, soft Extremities: warm, chronic changes, dep edema Access: picc LABS: Reviewed. IMAGING: Reviewed. MEDICATIONS: Reviewed. ASSESSMENT: 82 F Acute resp insufficiency secondary to narcotics with Acute hypercapnic respiratory failure GIB with melana Acute on chronic anemia, requiring trasfusion CKD 3 Hyperchloremic acidosis Leukocytosis - tx for aspiration on basilar pna chronic PLAN: Neurologic: encephalopathy lingering and still with c/o pain. will error on further pains meds today. dilantin level low but ok, can continue iv Cardiovascular: perfusing. not taking much in of course so allow vol auto Respiratory: bipap today b/c narc will only dec drive further. see if longer on bipap can benefit but clearly not improving. intubation can help with co2 but never going to improve her status nor pain. Gastrointestinal: nutritional status declinging further but no plans to force ngt. bid ppi Renal/Metabolic: stable but poor fx Infectious Disease: on zosyn with broad coverage, and given bands, al beit likely just marrow response will complete 7 day total. Hematology: cbc holding. iron replacements. Endocrine: florinef. midodrine. Musculoskeletal: stage 2 sarcal decub and avoid deconditioning Psych/Social: d/w daughter at [facility]. family all seem to understand difficult balance and inability to thrive. Bipap ventilation today; they will discuss about dni and likely implement soon. explained we may need to discuss all together this weekend if still unable to have her improve and decided direction of care. Supportive and preventative care as ordered. SUP: ppi VTE prophylaxis: scds Disposition: still requires ICU Code Status: Full presently Critical Care Time: 28min Austin Michel DO
[2017-07-11] MEDS: fentaNYL* 50 MCG/ML 2 ML VIAL (100 MCG VIAL) IV PRN ×5 (16:15→22:09)
[2017-07-11] MEDS ORDERED: fentaNYL* 50 MCG/ML 2 ML VIAL (100 MCG VIAL) ONE (17:22)
[2017-07-11] MEDS: Gabapentin CAP(*) 300 MG PO SCH (22:05)
[2017-07-11] MEDS: Sodium Chloride 5% OPTH OINT* 3.5 gm TUBE BOTH EYES SCH (22:19)
[2017-07-12] MEDS: ZOSYN 3.375 GM Q12H per EXTENDED INFUSION IVPB SCH ×4 (01:00→14:06)
[2017-07-12] MEDS: fentaNYL* 50 MCG/ML 2 ML VIAL (100 MCG VIAL) IV PRN ×9 (01:22→19:33)
[2017-07-12 06:35] LABS: EGFR Non-African American 22.9 (>60)
[2017-07-12 06:44] LABS: Hematocrit 29 % (35-47); Hemoglobin 8.9 g/dl (12.0-16.0); Mean Corpuscular HGB Conc 31 g/dl (31-36); Mean Corpuscular Hemoglobin 27 pg (27-31); Mean Corpuscular Volume 88 fL (80-97); Mean Platelet Volume 6.9 um3 (7.4-10.4); Platelet Count 325 10^3/ul (150-450); Red Blood Count 3.26 10^6/ul (4.0-5.4); Red Cell Distribution Width 23 % (10.5-15)
[2017-07-12 07:24] LABS: Monocytes % 7 % (0-7)
[2017-07-12] MEDS ORDERED: Magnesium Sulfate 2 GM IV* 2 GM/50 ML BAG IVPB ONE (08:12)
--- NOTE | 2017-07-12 09:16 | RAD ---
HISTORY: Respiratory failure COMPARISONS: July 08, 2017 VIEWS: 2: frontal portable view of the chest at 8:40 AM. Evaluation of the right upper lung is limited by head positioning. FINDINGS: LINES AND TUBES: None. CARDIOMEDIASTINAL SILHOUETTE: The cardiomediastinal silhouette is stable. PLEURA: There is blunting of costophrenic angles bilaterally. LUNG PARENCHYMA: There is a diffuse reticular pattern with indistinct pulmonary vessels. ABDOMEN: The upper abdomen is clear. There is no subphrenic gas. BONES AND SOFT TISSUES: No bone or soft tissue abnormalities are noted. IMPRESSION: 1. LIMITED STUDY. 2. SMALL BILATERAL PLEURAL EFFUSIONS. 3. PULMONARY INTERSTITIAL EDEMA
[2017-07-12] MEDS: Iron Sucrose* 200 MG in NS 0.9% 100 ML* 100 ML IVPB SCH (09:30)
[2017-07-12] MEDS: Pantoprazole IV* 40 MG IV SCH ×2 (09:31→23:20)
[2017-07-12] MEDS: Sodium Chloride 2% OPTH.SOL* 15 ML BTL BOTH EYES SCH ×3 (09:51→23:20)
[2017-07-12] MEDS: CMC: Midodrine (NF) 5 MG TAB PO SCH ×3 (10:02→23:15)
[2017-07-12] MEDS: Phenytoin CAP(*) 100 MG CAP.ER PO SCH (10:05)
[2017-07-12] MEDS: Oxybutynin TAB* 5 MG PO SCH (10:11)
[2017-07-12] MEDS: Fludrocortisone Acetate TAB* 0.1 MG PO SCH (10:11)
[2017-07-12] MEDS: Calcium Carbonate CHEW TAB* 500 MG (TUMS) PO SCH (10:11)
[2017-07-12] MEDS ORDERED: fentaNYL PATCH 25 MCG/HR TRANSDERM SCH (13:00)
[2017-07-12] MEDS ORDERED: HYDROmorphone INJ* 2 MG/ML CARPUJECT SYRINGE ONE (13:00)
--- NOTE | 2017-07-12 13:47 | PN ---
Progress Note - Progress Note Date of Service: 07/12/17 Note: CRITICAL CARE MEDICINE DATE: 07/12/17 TIME: 1100 SUBJECTIVE: Patient seen and examined. proxy at bedside. PHYSICAL EXAM: Vital Signs: Reviewed. hr 90s. BP holding. rr teens. Neurologic: awakens much better. communicating that she is in pain and ready to . best mentation yet HEENT: anciteric, perrl Cardiovascular: distant, reg, loud as Respiratory: mild coarseness but otherwise pretty clear Abdomen: obese, soft Extremities: warm, chronic changes, dep edema Access: picc LABS: Reviewed. IMAGING: Reviewed. MEDICATIONS: Reviewed. ASSESSMENT: 82 F Acute resp insufficiency secondary to narcotics with Acute hypercapnic respiratory failure GIB with melana Acute on chronic anemia, requiring trasfusion CKD 3 Hyperchloremic acidosis Leukocytosis - tx for aspiration on basilar pna chronic PLAN: Neurologic: encephalopathy better post terminal manager bipap yesterday but now more awake and in more pain. contined prns. not taking much by mouth to aid. ask pain to eval pump and increase if able. pt asking for pain to dissipate and clear that ok to . Cardiovascular: perfusing. not taking in much. may need some free water. Respiratory: bipap off today. will try to remain off and error on pain control as much as we can without bipap needs, but not going to bipap if remaining in pain. proxy/family in agreement. dnr/dni. error towards comfort. Gastrointestinal: nutritional status declinging. no gt. bid ppi still. gib stable. Renal/Metabolic: stable but poor overall Infectious Disease: on zosyn with broad coverage that can complete today. Hematology: cbc ok. iron replacements. Endocrine: florinef. midodrine as able for now. Musculoskeletal: unfortunately stage 2 sarcal decub and further deconditioning Psych/Social: d/w proxy and family and they expressed understanding. Supportive and preventative care as ordered. SUP: ppi VTE prophylaxis: scds Disposition: requires ICU Code Status: DNR/DNI Critical Care Time: 30min Asutin Michel DO
[2017-07-12] MEDS: fentaNYL Patch Check Q Shift 1 NOTE SCH (19:25)
[2017-07-12] MEDS: HYDROmorphone INJ* 2 MG/ML CARPUJECT SYRINGE IV SLOW PU PRN (20:18)
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
[2017-07-12] MEDS: Gabapentin CAP(*) 300 MG PO SCH (23:14)
[2017-07-12] MEDS: Sodium Chloride 5% OPTH OINT* 3.5 gm TUBE BOTH EYES SCH (23:20)
[2017-07-13] MEDS: HYDROmorphone INJ* 2 MG/ML CARPUJECT SYRINGE IV SLOW PU PRN ×4 (01:22→18:00)
[2017-07-13] MEDS: fentaNYL Patch Check Q Shift 1 NOTE SCH ×2 (07:24→18:55)
[2017-07-13] MEDS: Pantoprazole IV* 40 MG IV SCH (08:28)
[2017-07-13] MEDS: Sodium Chloride 2% OPTH.SOL* 15 ML BTL BOTH EYES SCH ×3 (08:28→20:53)
[2017-07-13] MEDS: fentaNYL* 50 MCG/ML 2 ML VIAL (100 MCG VIAL) IV PRN (08:35)
[2017-07-13] MEDS: Fludrocortisone Acetate TAB* 0.1 MG PO SCH (08:46)
[2017-07-13] MEDS: CMC: Midodrine (NF) 5 MG TAB PO SCH (08:46)
[2017-07-13] MEDS ORDERED: fentaNYL PATCH 50 MCG/HR TRANSDERM SCH (11:00)
[2017-07-13] MEDS ORDERED: Morphine ORAL.SOLN 10 mg* 2 MG/ML UDC 5 ml PO PRN (11:23)
[2017-07-13 13:01] VITALS: BP 84/26
--- NOTE | 2017-07-13 14:10 | PN ---
Progress Note - Progress Note Date of Service: 07/13/17 Note: CRITICAL CARE MEDICINE DATE: 07/13/17 TIME: 1000 SUBJECTIVE: Patient seen and examined. PHYSICAL EXAM: Vital Signs: Reviewed. hr 100s. BP holding. rr teens to lower. Neurologic: awakens for staff with c/o pain. less responsive for me. Cardiovascular: distant, reg, loud as Respiratory: mild coarseness non-labored. Abdomen: obese, soft Extremities: warm, chronic changes Access: picc LABS: Reviewed. IMAGING: Reviewed. MEDICATIONS: Reviewed. ASSESSMENT: 82 F Acute resp insufficiency secondary to narcotics with Acute hypercapnic respiratory failure GIB with melana Acute on chronic anemia, requiring trasfusion CKD 3 Hyperchloremic acidosis Leukocytosis - tx for aspiration on basilar pna chronic PLAN: whenever she is awake she continues with c/o pain. yesterday she made wishes clear to be pain free and understandable of comfort and . Still unable to achieve pain control. pump continued. add additional fent td to 25 already to overlap for now. prns. comfort measures alone. ok for floor. ask palliative to follow. Supportive and preventative care as ordered. Code Status: DNR/DNI, comfort Critical Care Time: 25min FRenee Michel DO
[2017-07-13] MEDS ORDERED: Morphine ORAL CONCENTRATE* 5 MG/0.25 ML ORAL.SYRIN SL PRN (14:37)
[2017-07-13] MEDS: Sodium Chloride 5% OPTH OINT* 3.5 gm TUBE BOTH EYES SCH (20:53)
[2017-07-14] MEDS: HYDROmorphone INJ* 2 MG/ML CARPUJECT SYRINGE IV SLOW PU PRN ×3 (01:06→14:59)
[2017-07-14] MEDS: fentaNYL Patch Check Q Shift 1 NOTE SCH ×2 (06:54→19:01)
[2017-07-14] MEDS: Sodium Chloride 2% OPTH.SOL* 15 ML BTL BOTH EYES SCH (07:46)
[2017-07-14] MEDS ORDERED: LORazepam INJ* 2 MG/ML 1 ML VIAL IV PUSH PRN (11:18)
[2017-07-14] MEDS ORDERED: Atropine 1% (ORAL/SL)* 15 ML BTL SL PRN (11:19)
--- NOTE | 2017-07-14 11:23 | PN ---
Subjective - Subjective Reason for Note: Progress Note History: She has chosen palliative/terminal care. I was with her nephew. She is unconscious and peaceful Active Problems: Active Problems End of life care (Acute) Z51.5 Current Medications: Current Medications Atropine Sulfate (Atropine 1% (Oral/Sl)*) 2 drop SL Q2H PRN PRN Reason: DISCOMFORT Fentanyl (Duragesic Patch 25 Mcg/Hr*) 25 mcg TRANSDERM Q72H [facility] Last Admin: 07/12/17 13:35 Dose: 25 mcg Fentanyl (Duragesic Patch 50 Mcg/Hr*) 50 mcg TRANSDERM Q72H [facility] Last Admin: 07/13/17 11:56 Dose: 50 mcg Heparin Sodium (Porcine) (Heparin Flush Picc/Ml/Cvc(*)) 1 ml FLUSH 0600,1800 [facility] PRN Reason: Protocol Last Admin: 07/14/17 05:56 Dose: 1 ml Hydromorphone HCl (Dilaudid Inj*) 1 mg IV SLOW PU Q2H PRN PRN Reason: SEVERE PAIN Last Admin: 07/14/17 05:55 Dose: 1 mg Lorazepam (Ativan Inj*) 1 mg IV PUSH Q6H PRN PRN Reason: ANXIETY Pharmacy Profile Note (Fentanyl Patch Check Q Shift) 1 note N/A 0700,1900 [facility] Last Admin: 07/14/17 06:54 Dose: 1 note Home Medications: Home Medications Medication Instructions Recorded Confirmed Type Bumetanide TAB* [Bumex 1 MG TAB*] 1 mg PO DAILY 07/06/17 07/06/17 History Calcium Carbonate CHEW TAB* [Tums*] 1,000 mg PO BID 07/06/17 07/06/17 History Chlorhexidine MOUTHWASH 0.12%* 15 ml SWISH SPIT DAILY 07/06/17 07/06/17 History [Peridex Mouth Wash 0.12%*] Cyanocobalamin INJ * [Vitamin B12 1,000 mcg IM .TWICE A MONTH 07/06/17 07/06/17 History INJ *] EPINEPHrine SYR* [EPINEPHphrine 0.1 mg IM ONCE PRN 07/06/17 07/06/17 History SYR*] Fludrocortisone Acetate TAB* 0.1 mg PO QAM 07/06/17 07/06/17 History [Florinef TAB*] Gabapentin CAP(*) [Neurontin 300 300 mg PO BEDTIME 07/06/17 07/06/17 History CAP(*)] HYDROmorphone TAB* [Dilaudid TAB*] 6 - 8 mg PO Q4H PRN MDD 4.5 tablets 07/06/17 07/06/17 History Metolazone TAB* [Zaroxolyn TAB*] 2.5 mg PO DAILY PRN 07/06/17 07/06/17 History Midodrine (NF) 2.5 mg PO TID 07/06/17 07/06/17 History Nitroglycerin TAB 0.4 MG* 0.4 mg SL Q5M PRN 07/06/17 07/06/17 History Oxybutynin TAB* [Ditropan TAB*] 5 mg PO DAILY 07/06/17 07/06/17 History Phenytoin CAP(*) [Dilantin CAP(*)] 100 mg PO BID 07/06/17 07/06/17 History Phytonadione INJ (Adult)* [Vitamin 1 ml IM WEEKLY 07/06/17 07/06/17 History K1 INJ (Adult)*] Polyethylene Glycol 3350* 17 gm PO DAILY PRN 07/06/17 07/06/17 History [Miralax*] Potassium Chlor TAB* [Klor Con ER 40 meq PO BID 07/06/17 07/06/17 History TAB*] Prochlorperazine SUPP* [Compazine 25 mg TX Q4H PRN 07/06/17 07/06/17 History Supp*] SUMAtriptan TAB* [Imitrex TAB*] 50 mg PO DAILY PRN 07/06/17 07/06/17 History Sodium Chloride 2% OPTH.ALEJANDRO* [Niko 1 drop BOTH EYES TID 07/06/17 07/06/17 History 128 Opth 2% Alejandro*] Sodium Chloride 5% OPTH OINT* 1 applic BOTH EYES BEDTIME 07/06/17 07/06/17 History [Niko 128- 5% Opth Oint*] Spironolactone TAB* [Aldactone 25 mg PO QAM 07/06/17 07/06/17 History TAB*] Allergies: Allergies Allergy/AdvReac Type Severity Reaction Status Date / Time codeine AdvReac Unknown Unknown Verified 07/07/17 07:31 Reaction Details oxymorphone AdvReac Unknown Unknown Verified 07/07/17 07:31 Reaction Details tramadol AdvReac Unknown Unknown Verified 07/07/17 07:31 Reaction Details bee stings Allergy Severe anaphylaxis Uncoded 10/18/15 13:21 coffee Allergy Unknown Unknown Uncoded 10/18/15 13:21 Reaction Details Objective - Vital Signs Vital Signs: Vital Signs 07/13/17 07/13/17 07/13/17 11:56 12:00 12:12 Temperature 99.5 F Pulse Rate 100 Respiratory 10 9 Rate Blood Pressure 83/35 (mmHg) O2 Sat by Pulse 98 Oximetry 07/13/17 07/13/17 07/13/17 12:48 13:01 15:19 Temperature 98.5 F 98.5 F Pulse Rate 97 97 Respiratory 10 10 14 Rate Blood Pressure 84/26 84/26 (mmHg) O2 Sat by Pulse 96 96 Oximetry 07/13/17 07/13/17 07/13/17 16:09 18:00 18:08 Temperature Pulse Rate Respiratory 10 10 10 Rate Blood Pressure (mmHg) O2 Sat by Pulse Oximetry 07/13/17 07/13/17 07/13/17 18:56 19:34 19:44 Temperature Pulse Rate Respiratory 12 13 13 Rate Blood Pressure (mmHg) O2 Sat by Pulse Oximetry 07/13/17 07/14/17 07/14/17 22:34 00:01 01:06 Temperature Pulse Rate Respiratory 14 13 11 Rate Blood Pressure (mmHg) O2 Sat by Pulse Oximetry 07/14/17 07/14/17 07/14/17 02:16 05:55 06:55 Temperature Pulse Rate Respiratory 10 13 9 Rate Blood Pressure (mmHg) O2 Sat by Pulse Oximetry 07/14/17 07/14/17 07/14/17 07:39 08:55 10:37 Temperature Pulse Rate Respiratory 9 12 10 Rate Blood Pressure (mmHg) O2 Sat by Pulse Oximetry - Intake and Output Intake and Output: Intake & Output 07/11/17 07/12/17 07/13/17 07/14/17 11:59 11:59 11:59 11:59 Intake Total 1659 687 473 0 Output Total 5075 932 190 75 Balance -496 -245 283 -75 Weight 145 lb 8.081 oz 141 lb 8.588 oz 142 lb 13.753 oz Intake: IV Fluids 1320 426 278 ABX - PIPERACILLIN 60 D5W 1129 KVO W/PIGGYBACK ZOSYN 145 34 NS (0.9%) 46 392 218 IVPB 123 261 170 ABX - PIPERACILLIN 110 60 Iron sucrose 123 115 110 KVO W/PIGGYBACK ZOSYN 36 Medicated IV 216 PROTONIX 216 Oral 0 0 25 0 Output: Urine 0 20 [place] 2155 912 190 75 Other: Date of Last Bowel 07/11/17 Movement # Bowel Movements 1 0 Estimated Stool Amount Small ADLs: Meal Record Start: 07/06/17 23: 47 Freq: DAILY@0900,1400,1800 Status: Complete Protocol: Created 07/06/17 23:47 System (Rec: 07/06/17 23:47 System TELE-C10) Document 07/07/17 09:00 [id number] (Rec: 07/07/17 10:29 ISO2848 TELE-C09) Document 07/07/17 14:00 XIZ5148 (Rec: 07/07/17 15:40 RNE6654 TELE-C09) Document 07/07/17 18:00 AEE7376 (Rec: 07/07/17 19:33 VWV2272 TELE-C01) ADLs: Meal Record Start: 07/08/17 10: 42 Freq: 09,13,18 Status: Active Protocol: Created 07/08/17 10:42 RCU5643 (Rec: 07/08/17 10:42 QYS2346 ICU-C12) Document 07/08/17 13:00 SNX1221 (Rec: 07/08/17 15:32 KGQ9878 ICU-C15) Document 07/08/17 18:00 NSZ8505 (Rec: 07/09/17 00:36 MFW0786 ICU-C25) Document 07/09/17 09:00 XXS8409 (Rec: 07/09/17 11:56 JLF4590 ICU-C15) Document 07/09/17 13:00 JSX8111 (Rec: 07/09/17 14:49 WXA6871 ICU-C15) Document 07/09/17 18:00 IVP0241 (Rec: 07/09/17 19:02 CHY8791 ICU-C15) Document 07/10/17 09:00 IDR2594 (Rec: 07/10/17 10:25 XVU7549 ICU-C15) Document 07/12/17 09:00 TIP0107 (Rec: 07/12/17 11:05 ZWO5580 ICU-C12) Document 07/12/17 13:00 YPS1631 (Rec: 07/12/17 16:32 HQF9517 ICU-C12) Document 07/13/17 09:00 LGQ0095 (Rec: 07/13/17 10:43 ASE2392 ICU-C25) Document 07/13/17 17:10 KQS4109 (Rec: 07/13/17 17:11 OQX1917 MED-C14) Document 07/13/17 17:58 CGJ0045 (Rec: 07/13/17 17:59 XZR4049 MED-C14) Document 07/14/17 09:00 PZC8066 (Rec: 07/14/17 10:18 YGM0622 MED-C09) Intake and Output Start: 07/06/17 23: 47 Freq: DAILY@0600,1400,2200 Status: Complete Protocol: Created 07/06/17 23:47 System (Rec: 07/06/17 23:47 System TELE-C10) Document 07/07/17 06:00 VKI5339 (Rec: 07/07/17 06:15 ESX8823 TELE-C34) Document 07/07/17 07:22 HXD0486 (Rec: 07/07/17 07:23 GXI6717 TELE-C10) Document 07/07/17 14:00 IOG5520 (Rec: 07/07/17 15:40 LJJ5506 TELE-C09) Document 07/08/17 06:00 UAG8772 (Rec: 07/08/17 06:15 IGE1433 TELE-C11) Intake and Output Start: 07/08/17 10: 42 Freq: DAILY@0600,1400,2200 Status: Active Protocol: Created 07/08/17 10:42 UTW9339 (Rec: 07/08/17 10:42 LVJ5442 ICU-C12) Document 07/08/17 14:02 MXL3159 (Rec: 07/08/17 14:03 ISDEMO-M03 ) Document 07/08/17 17:00 FVU7043 (Rec: 07/08/17 17:04 DAU8270 ICU-C15) Document 07/08/17 22:19 OGW0153 (Rec: 07/08/17 23:20 FRY4067 ICU-C25) Document 07/09/17 02:00 RPK7902 (Rec: 07/09/17 03:30 IWN1968 ICU-C25) Document 07/09/17 05:50 KTP9019 (Rec: 07/09/17 05:52 MXO0584 ICU-C25) Document 07/09/17 09:00 GKI2619 (Rec: 07/09/17 09:26 MAU4241 ICU-C15) Document 07/09/17 10:00 XQH0459 (Rec: 07/09/17 10:21 IFV4653 ICU-C15) Document 07/09/17 11:00 JKM9122 (Rec: 07/09/17 11:31 IKW9912 ICU-C15) Document 07/09/17 12:00 MTN8801 (Rec: 07/09/17 12:32 GHL1756 ISDEMO-M03 ) Document 07/09/17 14:00 ACZ9324 (Rec: 07/09/17 14:43 OSH0636 ICU-C15) Document 07/09/17 15:00 WGA5156 (Rec: 07/09/17 15:03 WYG8607 ICU-C15) Document 07/09/17 15:04 DNP2468 (Rec: 07/09/17 15:09 OZQ2532 ICU-C15) Document 07/09/17 18:00 RTF9623 (Rec: 07/09/17 19:02 DYF9000 ICU-C15) Document 07/09/17 19:32 HPO2940 (Rec: 07/09/17 19:32 UMB1911 ISDEMO-M03 ) Document 07/09/17 20:00 HYH6014 (Rec: 07/09/17 22:36 VJO2249 ICU-C25) Document 07/09/17 21:00 UVJ2308 (Rec: 07/10/17 00:31 FVQ1164 ICU-C25) Document 07/09/17 22:00 XKJ8818 (Rec: 07/10/17 00:34 PAD9425 ICU-C25) Document 07/09/17 23:00 CUB6428 (Rec: 07/10/17 00:34 ZGV0179 ICU-C25) Document 07/10/17 00:00 ZOA9377 (Rec: 07/10/17 00:34 MYB0024 ICU-C25) Document 07/10/17 01:00 AFK4073 (Rec: 07/10/17 01:24 WHX3474 ICU-C25) Document 07/10/17 02:00 PNK5748 (Rec: 07/10/17 04:27 VSD1340 ICU-C25) Document 07/10/17 03:00 FCW8002 (Rec: 07/10/17 04:28 TQJ9319 ICU-C25) Document 07/10/17 04:38 RXU8103 (Rec: 07/10/17 04:58 IQS4853 ICU-C25) Document 07/10/17 05:27 FGA6782 (Rec: 07/10/17 05:28 NMR7634 ICU-C25) Document 07/10/17 05:56 HZD7496 (Rec: 07/10/17 05:56 IPF4714 ISDEMO-M03 ) Document 07/10/17 08:00 XVG9364 (Rec: 07/10/17 08:11 IYZ6740 ICU-C15) Document 07/10/17 10:00 JUN4935 (Rec: 07/10/17 10:25 QYF3032 ICU-C15) Document 07/10/17 12:00 TVK5162 (Rec: 07/10/17 12:37 NVK3664 ISDEMO-M03 ) Document 07/10/17 13:00 WZL3533 (Rec: 07/10/17 13:50 LVZ6292 ICU-C24) Document 07/10/17 15:42 WSI6008 (Rec: 07/10/17 15:42 PHB3868 ICU-M26) Document 07/10/17 16:51 TLY9185 (Rec: 07/10/17 16:52 ZWK6178 ICU-C15) Document 07/10/17 17:54 KFP1317 (Rec: 07/10/17 17:54 PML8929 ICU-C15) Document 07/10/17 21:59 JNX5957 (Rec: 07/10/17 22:01 VEK6129 ICU-M20) Document 07/10/17 22:04 AFC7073 (Rec: 07/10/17 22:04 UMD3336 ICU-M20) Document 07/11/17 06:00 AUO8367 (Rec: 07/11/17 06:17 VFA0277 ICU-M20) Document 07/11/17 07:53 MHZ5766 (Rec: 07/11/17 07:53 JYP6071 ICU-C15) Document 07/11/17 10:38 GIR2315 (Rec: 07/11/17 10:38 LXP3261 ISDEMO-M03 ) Document 07/11/17 12:00 IQK2282 (Rec: 07/11/17 12:57 UMY5010 ICU-C25) Document 07/11/17 13:00 EZG4833 (Rec: 07/11/17 13:34 CFK7588 ISDEMO-M03 ) Document 07/11/17 14:52 RFO4837 (Rec: 07/11/17 14:52 SIV0339 ISDEMO-M03 ) Document 07/11/17 16:32 AAC6089 (Rec: 07/11/17 16:32 ZPZ4589 ISDEMO-M03 ) Document 07/11/17 17:12 BHN9318 (Rec: 07/11/17 17:12 NMQ6708 ICU-C15) Document 07/11/17 18:00 QLE5842 (Rec: 07/11/17 18:15 QVU2807 ICU-C15) Document 07/11/17 21:00 RQC0627 (Rec: 07/11/17 21:02 TRN5167 ISDEMO-M03 ) Document 07/11/17 22:00 RHW1765 (Rec: 07/11/17 22:20 PJI1927 ICU-C16) Document 07/11/17 23:00 YHZ0118 (Rec: 07/11/17 23:57 ODG5887 ICU-C16) Document 07/11/17 23:58 FNS5931 (Rec: 07/12/17 00:05 HJP8368 ICU-C16) Document 07/12/17 01:00 NCH2923 (Rec: 07/12/17 01:03 DKX3379 ISDEMO-M03 ) Document 07/12/17 02:00 YMC6105 (Rec: 07/12/17 02:32 BRJ7446 ISDEMO-M03 ) Document 07/12/17 04:00 RRY0050 (Rec: 07/12/17 04:30 JJH2626 ICU-C16) Document 07/12/17 05:00 HBC7806 (Rec: 07/12/17 05:08 MTY9016 ICU-C16) Document 07/12/17 06:00 VTF4403 (Rec: 07/12/17 06:07 KJN3196 ISDEMO-M03 ) Document 07/12/17 07:00 KEO3160 (Rec: 07/12/17 10:42 QFT8516 ICU-C12) Document 07/12/17 11:05 AUB1765 (Rec: 07/12/17 11:05 LXL4894 ICU-C12) Document 07/12/17 12:00 XZR9118 (Rec: 07/12/17 15:29 EBB3788 ICU-C12) Document 07/13/17 00:00 MIF6089 (Rec: 07/13/17 00:39 JOD3857 ICU-C15) Document 07/13/17 04:00 DSE2538 (Rec: 07/13/17 06:29 SEJ9122 ICU-C15) Document 07/13/17 08:00 OBF3609 (Rec: 07/13/17 10:40 SBZ3129 ICU-C25) Document 07/13/17 21:08 BJU6700 (Rec: 07/13/17 21:11 DGR7286 MED-C14) Document 07/14/17 06:00 WGP7331 (Rec: 07/14/17 06:25 EIC8077 MED-C09) Intake and Output Start: 07/09/17 09: 25 Freq: 06,14,22 Status: Active Protocol: Created 07/09/17 09:25 HZQ4253 (Rec: 07/09/17 09:25 SUZ3041 ICU-C15) Assessment - Problem List Assessment: Patient Problems End of life care (Acute) Elevated troponin I level (Acute) Infection (Acute) Iron deficiency anemia (Acute) Melena (Acute) Osteomalacia (Acute) Physical medicine and rehabilitation procedures (Acute) Presence of intrathecal pump (Acute) Urinary tract infection (Acute) Aortic stenosis (Chronic) Bariatric surgery status (Chronic) Chronic pain syndrome (Chronic) Compression fracture of L3 lumbar vertebra (Chronic) Esophageal reflux disease (Chronic 03/30/14) L2 vertebral fracture (Chronic) Malabsorption (Chronic) Neurogenic bladder (Chronic) Osteoporosis (Chronic) Pancreatic insufficiency (Chronic) Weakness (Chronic 03/30/14) Plan: I visited her socially each day in the ICU and I have had daily conversations with Dr. Michel. Today, she is unconscious and pain free. She is not anxious or distressed. Her respiration is stable. I have reviewed her medication with her nurse and added atropine for secretions and lorazepam for distress. I have removed duplicate medications and those that are not consonant with end of life care. She is peaceful.
--- NOTE | 2017-07-17 23:15 | DS ---
SUMMARY: DATE OF ADMISSION: 07/06/17 DATE OF : 07/14/17 REASON FOR : 1. Sepsis. 2. Respiratory failure. 3. Failure to thrive. 4. Infection of unknown origin. 5. Melena. 6. Severe anemia requiring transfusion. 7. Comorbidities. 8. Epidural fentanyl pump. SECONDARY DIAGNOSES: 1. 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 2. Pancreatic insufficiency. 3. Osteoporosis. 4. Neurogenic bladder with self catheterization. 5. History of osteoporosis L2 vertebral fracture which is chronic. 6. Gastroesophageal reflux disease. 7. Severe chronic pain syndrome. 8. Aortic stenosis. HISTORY: Celia Gonsalez was an 82-year-old white female whose presentation is documented in Dr. Emir Garsia's admitting history and physical. In short , she had developed for 5 to 6 days black tarry stool, increasing weakness, some chest pain, nausea and vomiting, and some confusion. PHYSICAL EXAMINATION: Blood pressure 103/45, heart rate 91, respiratory rate 18 , oxygen saturation 98% on room air, T-max was 98.8. Chest was clear. Cardiovascular System: She had a 3/6 systolic ejection murmur. Abdomen: Soft. INITIAL DIAGNOSTIC STUDIES: Troponin I 0.42, creatinine 1.56, white count 29.9 , neutrophils 91%, platelets 445. Hemoglobin 6.5, hematocrit 21, INR 1.0. Urine positive for leukocyte esterase, CRP was 250. EKG, normal sinus rhythm. INITIAL ASSESSMENT: Leukocytosis, elevated CRP, possibilities included pneumonia versus urinary tract infection, abdominal pain and melena, possibility of gastric ulcer started on Protonix, anemia secondary to blood loss 1 unit of red cell transfusion was initiated, acute on chronic renal insufficiency due to blood loss, elevated troponin level could have been demand ischemia. IMAGING: Abdominal and pelvic CT on 07/06/17, mild bilateral dependent atelectasis at the lung bases, postcholecystectomy, post Mainor-en-Y gastric bypass, evidence of peripheral vascular disease without aneurysm of the aorta, no other acute findings. Serial chest x-ray showed pulmonary vascular congestion. LAB TESTS: Arterial blood gases 07/09/17, pH 7.14, pCO2 62, pO2 136, base excess minus 7.6. Ammonia level on 07/10/17 was 34, cortisol level on 07/09/17 was 13.26, procalcitonin on 07/08/17 was 1.0. MICROBIOLOGY: Negative urine, negative blood cultures, MRSA negative. Sacral wound culture, proteus mirabilis and montserrat albicans. HOSPITAL COURSE: On initial hospitalization, we attempted to find the source of infection and we were unsuccessful in localizing it. She had a transthoracic echocardiogram which showed no evidence of endocarditis. Serial chest x-rays were not diagnostic of pneumonia. On 07/08/17, she had a respiratory arrest which was partially improved with the use of naloxone. She was managed in the ICU between 07/08/17 and 07/13/17. It was not possible to find a way to both manage her pain and also her respiratory failure. The pain was severe. She had a fentanyl epidural pump interrogated by Dr. Dejesus, it was working adequately. The patient decided that she would prefer palliative care. She was discharged back to the medical floor and peacefully on 07/14/17. [id number]/CPS #: [id number]
== END 2017-07-14 20:50 | disposition expired | DRG 377 ==
LOC: ED 16:59 → MEDTELE 22:15 → ICU 07-08 10:32 → MED 07-13 11:44
PROVIDERS: ADMIT Internal Medicine; ATTEND Internal Medicine
PROC: 30233N1 Transfusion of Nonautologous Red Blood Cells into Peripheral Vein, Percutaneous Approach (ICD-10-PCS; principal; 2017-07-09)
PROC: 02HV33Z Insertion of Infusion Device into Superior Vena Cava, Percutaneous Approach (ICD-10-PCS; 2017-07-09)
PROC: 5A09357 Assistance with Respiratory Ventilation, Less than 24 Consecutive Hours, Continuous Positive Airway Pressure (ICD-10-PCS; 2017-07-10)
DX: K92.1 Melena (principal); J96.02 Acute respiratory failure with hypercapnia; J69.0 Pneumonitis due to inhalation of food and vomit; G93.40 Encephalopathy, unspecified; D62 Acute posthemorrhagic anemia; K90.9 Intestinal malabsorption, unspecified; I50.32 Chronic diastolic (congestive) heart failure; N17.9 Acute kidney failure, unspecified; I13.0 Hypertensive heart and chronic kidney disease with heart failure and stage 1 through stage 4 chronic kidney disease, or unspecified chronic kidney disease; E87.2 Acidosis; J90 Pleural effusion, not elsewhere classified; K21.9 Gastro-esophageal reflux disease without esophagitis; K86.89 Other specified diseases of pancreas; N31.9 Neuromuscular dysfunction of bladder, unspecified; M06.9 Rheumatoid arthritis, unspecified; M19.90 Unspecified osteoarthritis, unspecified site; R74.8 Abnormal levels of other serum enzymes; G43.909 Migraine, unspecified, not intractable, without status migrainosus; I35.0 Nonrheumatic aortic (valve) stenosis; M54.9 Dorsalgia, unspecified; M81.0 Age-related osteoporosis without current pathological fracture; D63.1 Anemia in chronic kidney disease; R40.0 Somnolence; N18.3 Chronic kidney disease, stage 3 (moderate); I95.1 Orthostatic hypotension; D50.9 Iron deficiency anemia, unspecified; M83.9 Adult osteomalacia, unspecified; G89.4 Chronic pain syndrome; R53.1 Weakness; E86.0 Dehydration; E87.8 Other disorders of electrolyte and fluid balance, not elsewhere classified; R32 Unspecified urinary incontinence; Z96.1 Presence of intraocular lens; N31.2 Flaccid neuropathic bladder, not elsewhere classified; Z98.84 Bariatric surgery status; Z98.42 Cataract extraction status, left eye; Z88.6 Allergy status to analgesic agent; Z91.030 Bee allergy status; Z88.5 Allergy status to narcotic agent; Z91.018 Allergy to other foods; Z86.711 Personal history of pulmonary embolism; Z87.11 Personal history of peptic ulcer disease; Z86.718 Personal history of other venous thrombosis and embolism; Z98.41 Cataract extraction status, right eye; Z90.49 Acquired absence of other specified parts of digestive tract; Z86.14 Personal history of Methicillin resistant Staphylococcus aureus infection; Z80.8 Family history of malignant neoplasm of other organs or systems; Z87.891 Personal history of nicotine dependence; Z99.3 Dependence on wheelchair; Z95.828 Presence of other vascular implants and grafts; Z87.81 Personal history of (healed) traumatic fracture; Z82.49 Family history of ischemic heart disease and other diseases of the circulatory system; Z51.5 Encounter for palliative care; T40.605A Adverse effect of unspecified narcotics, initial encounter
CPT/HCPCS: 36415; 36600; 71045; 74176; 80048; 80053; 80061; 80076; 80185; 81003; 81015; 82140; 82248; 82272; 82533; 82728; 82803; 82947; 83540; 83550; 83605; 83735; 84100; 84132; 84145; 84446; 84484; 84590; 85014; 85018; 85025; 85027; 85060; 85610; 85652; 85730; 86078; 86140; 86850; 86900; 86901; 86922; 87040; 87070; 87077; 87086; 87106; 87186; 87205; 87640; 87641; 93005; 93306; 94660; 99284; A9270-GY; C1751; J1170; J1756; J1940; J2310; J2543; J3010; J3475; P9040